=== PATIENT | female | born 1990 | race Caucasian/White ===

== ENCOUNTER 2018-04-20 19:22 | Emergency (ER) | payer SELFPAY ==
[2018-04-20] MEDS ORDERED: Sodium Chloride 0.9% 10 ML Syringe FLUSH PRN (19:47)
[2018-04-20] MEDS ORDERED: Iopamidol 612 MG/ML 100 ML Bottle IVPUSH ONE (20:25)
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
--- NOTE | 2018-04-21 10:14 | CT ---
CT neck Technique: Multiple axial sections through the neck were obtained. Intravenous contrast was utilized. Comparison: No previous study. Findings: Visualized lung apices are clear. Thyroid gland appears within normal limits. Opacified vascular structures are within normal limits. Sinus disease as described in head CT is again seen. Scattered lymph nodes are seen which are believed to be within normal limits. Pharyngeal soft tissues appear within normal limits. Bone window settings were reviewed which appear within normal limits. Prevertebral soft tissues and epiglottis are normal. Parotid salivary gland and submandibular salivary glands appear within normal limits. Impression: 1. No acute abnormality is identified on CT study of the neck. Sinus disease seen on prior head CT study again noted. Diagnostic code #1 I agree with preliminary report issued by [facility] ([facility] report finalized on 04/20/18, 10:02 PM Central Time)
--- NOTE | 2018-04-21 10:15 | CT ---
Head CT Technique: Multiple axial sections through the brain were obtained. Intravenous contrast was not utilized. Kmaar: No prior intracranial imaging is available. Findings: Ventricles along with basal cisterns and sulci over the convexities are within normal limits for the patient's age. No abnormal parenchymal densities are seen. No evidence of intracranial hemorrhage. No midline shift or mass effect is seen. Bone window settings were reviewed which show no acute calvarial abnormality. Opacified right frontal sinus is seen as well as moderate mucosal thickening within the mid and anterior right ethmoid sinus. Impression: 1. Sinus disease as noted above most likely chronic. 2. No acute intracranial abnormality is identified. Diagnostic code #2 I agree with preliminary report issued by [facility] ([facility] report finalized on 04/20/18, 9:56 PM Central Time)
== END 2018-04-20 21:26 | disposition home or self-care (01) ==
LOC: JD.ED 19:22
DX: S06.0X9A Concussion with loss of consciousness of unspecified duration, initial encounter (principal); S40.022A Contusion of left upper arm, initial encounter; S40.021A Contusion of right upper arm, initial encounter; J45.909 Unspecified asthma, uncomplicated; Z79.899 Other long term (current) drug therapy; Y04.8XXA Assault by other bodily force, initial encounter; Y07.03 Male partner, perpetrator of maltreatment and neglect
CPT/HCPCS: 70450; 70491; 99284; J7050; Q9967

== ENCOUNTER 2018-06-04 05:46 | Emergency (ER) | payer SELFPAY ==
[2018-06-04] MEDS ORDERED: Ondansetron 4 MG/2 ML SDV IVPUSH ONE (06:21)
[2018-06-04] MEDS ORDERED: Sodium Chloride 0.9% 1,000 ML IV ONE (06:21)
--- NOTE | 2018-06-04 07:27 | EDM.PDOC ---
ED HPI GENERAL MEDICAL PROBLEM - General Chief Complaint: Gastrointestinal Problem Stated Complaint: vomiting Time Seen by Provider: 06/04/18 06:01 Source of Information: Reports: Patient - History of Present Illness INITIAL COMMENTS - FREE TEXT/NARRATIVE: See dictated documentation. Lower Abdomen Pain Score (Numeric/FACES): 4 - Related Data Allergies Allergy/AdvReac Type Severity Reaction Status Date / Time No Known Allergies Allergy Verified 06/04/18 05:59 Home Meds: Home Meds Albuterol [Ventolin HFA] 2 puff INH Q4HR PRN 04/20/18 [History] Past Medical History Respiratory History: Reports: Asthma Gastrointestinal History: Reports: Other (See Below) Other Gastrointestinal History: gallbladder flare up Psychiatric History: Reports: Anxiety - Past Surgical History HEENT Surgical History: Reports: Naso-Sinus Surgery, Other (See Below) Other HEENT Surgeries/Procedures: sinus surgery; polyps removal Social & Family History - Family History Family Medical History: Noncontributory - Tobacco Use Smoking Status *Q: Former Smoker Used Tobacco, but Quit: Yes Month/Year Tobacco Last Used: 1 year ago - Caffeine Use Caffeine Use: Reports: None - Recreational Drug Use Recreational Drug Use: No ED ROS GENERAL - Review of Systems Review Of Systems: ROS reveals no pertinent complaints other than HPI. ED EXAM, GI/ABD - Physical Exam Exam: See Below Course - Vital Signs Last Recorded V/S: Last Vital Signs Temp 36.7 C 06/04/18 05:55 Pulse 66 06/04/18 05:55 Resp 18 06/04/18 05:55 BP 116/71 06/04/18 05:55 Pulse Ox 99 06/04/18 05:55 - Orders/Labs/Meds Orders: Active Orders 24 hr Category Date Time Status Pelvic Exam, Set Up [RC] ASDIRECTED Care 06/04/18 06:41 Active GC/CHLAMYDIA BY PCR [MOLEC] Stat Lab 06/04/18 07:00 Received HCG QUALITATIVE,URINE [URCHEM] Stat Lab 06/04/18 06:15 Ordered Labs: Laboratory Tests 06/04/18 06/04/18 Range/Units 06:15 06:45 Urine Color Yellow (Yellow) Urine Appearance Slt cloudy H (Clear) Urine pH 6.0 (5.0-8.0) Ur Specific [place] > or = 1.030 (1.005-1.030) Urine Protein Trace H (Negative) Urine Glucose (UA) Negative (Negative) Urine Ketones 1+ H (Negative) Urine Occult Blood Negative (Negative) Urine Nitrite Negative (Negative) Urine Bilirubin Negative (Negative) Urine Urobilinogen 0.2 (0.2-1.0) Ur Leukocyte Esterase Negative (Negative) Urine RBC 0-5 (0-5) /hpf Urine WBC 0-5 (0-5) /hpf Ur Epithelial Cells 20-30 H (0-5) /hpf Urine Bacteria Moderate H (FEW) /hpf Urine Mucus Many H (FEW) /hpf Ur Yeast w Hyphae Few H (NOT SEEN) Urine Yeast (Budding) Few H (NOT SEEN) Urine HCG, Qual Negative (NEGATIVE) Meds: Medications Discontinued Medications Generic Name Dose Route Start Last Admin Trade Name Freq PRN Reason Stop Dose Admin Sodium Chloride 1,000 mls @ 999 mls/hr 06/04/18 06:21 06/04/18 06:38 Normal Saline IV 06/04/18 07:21 999 mls/hr ONETIME ONE Administration Ondansetron HCl 4 mg 06/04/18 06:21 06/04/18 06:38 Zofran IVPUSH 06/04/18 06:22 4 mg ONETIME ONE Administration Departure - Departure Time of Disposition: 07:25 Disposition: Home, Self-Care 01 Condition: Good Clinical Impression: Vomiting - Discharge Information *PRESCRIPTION DRUG MONITORING PROGRAM REVIEWED*: Not Applicable *COPY OF PRESCRIPTION DRUG MONITORING REPORT IN PATIENT ALFREDO: Not Applicable Instructions: Nausea and Vomiting, Adult Referrals: PCP,None [Primary Care Provider] - Additional Instructions: Drink plenty of clear liquids. Zofran as needed for nausea. - My Orders Last 24 Hours: My Active Orders 06/04/18 06:15 HCG QUALITATIVE,URINE [URCHEM] Stat 06/04/18 06:41 Pelvic Exam, Set Up [RC] ASDIRECTED 06/04/18 07:00 GC/CHLAMYDIA BY PCR [MOLEC] Stat - Assessment/Plan Last 24 Hours: My Active Orders 06/04/18 06:15 HCG QUALITATIVE,URINE [URCHEM] Stat 06/04/18 06:41 Pelvic Exam, Set Up [RC] ASDIRECTED 06/04/18 07:00 GC/CHLAMYDIA BY PCR [MOLEC] Stat
[2018-06-04] MEDS ORDERED: ALPRAZolam 0.25 MG Tab PO ONE (07:41)
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
[2018-06-04 08:20] LABS: C. TRACHOMATIS BY PCR NOT DETECTED; N. GONORRHOEAE BY PCR NOT DETECTED
== END 2018-06-04 07:53 | disposition home or self-care (01) ==
LOC: JD.ED 05:46
DX: R11.2 Nausea with vomiting, unspecified (principal); Z87.891 Personal history of nicotine dependence
CPT/HCPCS: 81001; 81025; 87210; 87491; 87591; 87808; 96361; 96374; 99284; A9270; J2405; J7040; 99283

== ENCOUNTER 2019-03-09 05:07 | Inpatient (IN) | payer BC ==
--- NOTE | 2019-03-03 13:50 | PCM.LDHP ---
<Dwayne Noland - Last Filed: 03/03/19 15:40> L&D History of Present Illness - General Date of Service: 03/02/19 Admit Problem/Dx: Admission Diagnosis/Problem Admission Diagnosis/Problem 03/03/19 15:43 Primary section due to h/o herpes genitalis and possible breech presentation Source of Information: Patient History Limitations: Reports: No Limitations - History of Present Illness Introduction:: EGA:39W4D LMP: 06/05/18 GREGORY: 03/12/19 Chief complaint: Primary section secondary to h/o genital herpes Lisa is a 29 yo female, , 39W4D GA, dated by LMP 06/05/2018 and consistent with US done at 8 weeks and 21 weeks. She reports presence of movements, denies leakage of fluid, vaginal bleeding, headaches, visual changes , or abdominal pain. Routine care done at [facility] (first visit at 7 weeks GA), uterine size = to dates, BP ranges from 100-122/58-78. Problem list includes anemia, asthma, h/o genital herpes, and heart palpitations. Patient strongly desires a section due to an unconfirmed genital herpes infection in August 2018. She denies any active herpes lesions at this time and is on Valtrex as a prophylactic measure. Initial labs (06/10/18): VDRL/RPR nonreactive, urine culture positive for gardernella vaginalis (treated with flagyl, HBsAg negative, HIV negative, chlamydia and gonorrhea negative. 07/29/18: Blood type O+, antibody screen negative, HCT/HGB 36.7%/12.2, MCV 91.5 , platelets 346k 24-28 week labs (12/20/18): HCT/HGB 32.6%/10.6, MCV 94.2, platelets 340k, diabetes screen 68, VDRL/RPR nonreactive. 32-36 week labs (01/19/19): HCT/HGB 33.6%/10.8, platelets 320k. GBS negative (). - Related Data Allergies/Adverse Reactions: Allergies Allergy/AdvReac Type Severity Reaction Status Date / Time No Known Allergies Allergy Verified 06/04/18 05:59 Home Medications: Home Meds Albuterol [Ventolin HFA] 2 puff INH Q4HR PRN 04/20/18 [History] Past Medical History Respiratory History: Reports: Asthma Gastrointestinal History: Reports: Other (See Below) Other Gastrointestinal History: gallbladder flare up Psychiatric History: Reports: Anxiety - Past Surgical History HEENT Surgical History: Reports: Naso-Sinus Surgery, Other (See Below) Other HEENT Surgeries/Procedures: sinus surgery; polyps removal Social & Family History - Family History Family Medical History: Noncontributory - Caffeine Use Caffeine Use: Reports: None H&P Review of Systems - Review of Systems: Review Of Systems: See Below General: Reports: No Symptoms HEENT: Reports: No Symptoms Pulmonary: Reports: No Symptoms Cardiovascular: Reports: No Symptoms Gastrointestinal: Reports: No Symptoms Genitourinary: Reports: No Symptoms Musculoskeletal: Reports: No Symptoms Skin: Reports: No Symptoms Psychiatric: Reports: No Symptoms Neurological: Reports: No Symptoms Hematologic/Lymphatic: Reports: No Symptoms Immunologic: Reports: No Symptoms L&D Exam - Exam Exam: See Below - OB Specific Fundal Height In cm: 40 Movement: Active Heart Tones: Present Heart Tones per Min: 125 Heart Rate (FHR) Variability: Moderate (6-25 bmp) Presentation: Breech (Based on Dale maneuvers. Will confirm with bedside ultrasound on day of surgery) - Exam General: Alert, Oriented HEENT: Conjunctiva Clear, EOMI, Hearing Intact, Mucosa Moist & Odin Neck: Supple, Trachea Midline. No: Lymphadenopathy, Thyromegaly Lungs: Clear to Auscultation, Normal Respiratory Effort Cardiovascular: Regular Rate, Regular Rhythm GI/Abdominal Exam: Normal Bowel Sounds, Soft, Non-Tender Rectal Exam: Normal Exam, Normal Rectal Tone Genitourinary: Deferred Extremities: Normal Inspection, Normal Range of Motion, Non-Tender, No Pedal Edema, Normal Capillary Refill Skin: Warm, Dry, Intact Psychiatric: Alert, Normal Affect, Normal Mood - Problem List (1) 39 weeks gestation of SNOMED Code(s): 75909601 ICD Code: Z3A.39 - 39 WEEKS GESTATION OF Status: Acute (2) Anemia complicating SNOMED Code(s): 50926337 ICD Code: O99.019 - ANEMIA COMPLICATING , UNSPECIFIED TRIMESTER Status: Acute Qualifiers: Trimester: third trimester Qualified Code(s): O99.013 - Anemia complicating , third trimester (3) History of herpes genitalis SNOMED Code(s): 325403617 ICD Code: Z86.19 - PERSONAL HISTORY OF OTHER INFECTIOUS AND PARASITIC DISEASES Status: Acute Problem List Initiated/Reviewed/Updated: No Assessment/Plan Comment:: Planned primary section due to history of herpes genitalis. Patient declined vaginal delivery. Physical exam 03/02/19 is suspicious for breech presentation. Will confirm with bedside ultrasound on day of surgery 03/09/19. <Dawson Fairchild - Last Filed: 03/03/19 15:49> L&D History of Present Illness - General Admit Problem/Dx: Admission Diagnosis/Problem Admission Diagnosis/Problem - History of Present Illness Introduction:: Patient seen and examined by me and discussed with student. - Problem List (1) Breech presentation SNOMED Code(s): 9334760 ICD Code: O32.1XX0 - MATERNAL CARE FOR BREECH PRESENTATION, UNSP Status: Acute Qualifiers: Fetus number: single or unspecified fetus Qualified Code(s): O32.1XX0 - Maternal care for breech presentation, not applicable or unspecified (2) 39 weeks gestation of SNOMED Code(s): 97909583 ICD Code: Z3A.39 - 39 WEEKS GESTATION OF Status: Acute (3) Anemia complicating SNOMED Code(s): 48985737 ICD Code: O99.019 - ANEMIA COMPLICATING , UNSPECIFIED TRIMESTER Status: Acute Qualifiers: Trimester: third trimester Qualified Code(s): O99.013 - Anemia complicating , third trimester (4) History of herpes genitalis SNOMED Code(s): 420661085 ICD Code: Z86.19 - PERSONAL HISTORY OF OTHER INFECTIOUS AND PARASITIC DISEASES Status: Acute Problem List Initiated/Reviewed/Updated: No Assessment/Plan Comment:: Patient seen and examined by me and discussed with student.
[~2019-03-09 05:07] MED LIST: Citric Acid/Sodium Citrate Solution 30 ML Cup PO ONE; Metoclopramide 10 MG/2 ML SDV IVPUSH ONE; Nalbuphine 20 MG/ML 1 ML Syringe IVPUSH PRN; Sodium Chloride 0.9% 10 ML Syringe FLUSH PRN
[2019-03-09] MEDS: Lactated Ringers 1,000 ML IV SCH ×2 (06:15→06:57)
[2019-03-09] MEDS ORDERED: Bupivacaine 0.5% 30 ML SDV ONE (06:40)
[2019-03-09] MEDS ORDERED: Metoclopramide 10 MG/2 ML SDV ONE (06:41)
[2019-03-09] MEDS ORDERED: Citric Acid/Sodium Citrate Solution 30 ML Cup ONE (06:41)
[2019-03-09] MEDS ORDERED: Morphine PF 10 MG/10 ML SDV ONE (07:11)
[2019-03-09] MEDS ORDERED: ceFAZolin 1 GM Vial ONE (07:11)
--- NOTE | 2019-03-09 07:12 | PCM.SN ---
- Free Text/Narrative Note: Bedside Ultrasound performed and confirmed cephalic presentation.
[2019-03-09] MEDS ORDERED: Oxytocin 10 Units/1 ML SDV ONE (07:39)
[2019-03-09] MEDS ORDERED: ePHEDrine/Normal Saline 25 MG/5 ML Syringe ONE ×2 (07:46→08:05)
[2019-03-09] MEDS ORDERED: Ketorolac 30 MG/ML SDV ONE (08:04)
[2019-03-09] MEDS ORDERED: Lactated Ringers 1,000 ML ONE (08:18)
[2019-03-09] MEDS ORDERED: diphenhydrAMINE 50 MG/ML SDV IVPUSH PRN ×2 (08:37→08:56)
--- NOTE | 2019-03-09 08:38 | PCM.OPNOTE ---
- General Post-Op/Procedure Note Date of Surgery/Procedure: 03/09/19 Operative Procedure(s): low segment transverse Pre Op Diagnosis: 39 weeks gestation, anemia in , history of recurrent herpes genitalis Post-Op Diagnosis: Same Anesthesia Technique: Spinal Primary Surgeon: Dawson Fairchild Secondary Surgeon: Mick Arthur Anesthesia Provider: Adam Tanner Stamping Die Maker: Dwayne Noland (PAS) Stamping Die Maker: Sita Navarro (FIELD PROFESSIONAL) Reason Stamping Die Maker Was Necessary: visualization of the operative site with retraction, decrease comorbidity, mortality Role of Stamping Die Maker: visualization of the operative site with retraction, decrease comorbidity, mortality Fluid Replacement, Intraop: 2,700 Output, Urine Amount: 120 EBL in mLs: 950 Drain/Tube Comments:: Bowling Complications: None Condition: Good Free Text/Narrative:: Tissue was transported to the operating room and placed under spinal anesthesia in the supine position with wedge under the right hip and right flank. SCDs in place and functioning prior surgery. 2 g of Ancef given prior surgery. Prepared and draped in a sterile fashion after Bowling catheter placed. Timeout performed confirming name date of and procedure as section. Adequate level of anesthesia was confirmed 20 mL of 0.5% Marcaine injected in the area of the planned incision. brought to the operating room. Transverse lower abdominal incision made (Pfannenstiel) and care was sharp section to into the anterior fascia peritoneal cavity was entered without difficulty bladder flap created and pushed caudad. Low segment transverse performed with clear amniotic fluid upon entry into the amnionic cavity. Female liveborn delivered at 0755 hrs. Apgars 8/8 weight 3230 g/7 lbs. 2 oz. Cord blood was collected from three-vessel cord and placenta was removed manually. Additional remnants of membranes removed from the endometrial cavity. Endometrial cavity inspected, cervical patency assured and uterine incision was closed in 2 layers. Sponge needle pack count correct upon closure of the uterus. The uterine incision closed with running locking suture of 0 Monocryl for the first layer second layer with horizontal modified Lembert suture and additional figure -of-eight sutures for hemostasis. Both tubes and ovaries were normal. Clots cleaned from the cul-de-sac and gutters bilaterally reinspection of the operative site showed no bleeding. Sponge needle pack count correct 2 and the abdominal cavity was closed with #1 PDS for the anterior fascia. Skin was closed subcuticular 3-0 Monocryl Angelo needle and Dermabond Preneo applied. Clots were cleaned from the vagina at the end procedure. Patient was transported postanesthesia care unit in satisfactory condition. No blood transfusions required.
--- NOTE | 2019-03-09 08:38 | PCM.POSTAN ---
POST ANESTHESIA ASSESSMENT - MENTAL STATUS Mental Status: Alert, Oriented - VITAL SIGNS Pulse Rate: 79 SaO2: 95 Resp Rate: 9 Blood Pressure: 108/59 Temperature: 36.6 C - RESPIRATORY Respiratory Status: Respiratory Rate WNL, Airway Patent, O2 Saturation Stable - CARDIOVASCULAR CV Status: Pulse Rate WNL, Blood Pressure Stable - GASTROINTESTINAL GI Status: No Symptoms - PAIN Pain Score: 0 - POST OP HYDRATION Hydration Status: Adequate & Stable - OBSERVATIONS Free Text/Narrative:: no anesthesia complications noted
--- NOTE | 2019-03-09 08:39 | PCM.PREANE ---
Preanesthetic Assessment - Anesthesia/Transfusion/Family Hx Anesthesia History: Prior Anesthesia Without Reaction Family History of Anesthesia Reaction: No Transfusion History: No Prior Transfusion(s) - Review of Systems General: No Symptoms Pulmonary: No Symptoms Cardiovascular: Dyspnea on Exertion Gastrointestinal: No Symptoms Neurological: No Symptoms Other: Reports: None - Physical Assessment NPO Status Date: 03/08/19 NPO Status Time: 00:00 Pulse: 79 O2 Sat by Pulse Oximetry: 95 Respiratory Rate: 9 Blood Pressure: 108/59 Temperature: 36.6 C Vital Signs: Last Vital Signs Temp 36.6 C 03/09/19 08:38 Pulse 79 03/09/19 08:38 Resp 9 L 03/09/19 08:38 BP 108/59 L 03/09/19 08:38 Pulse Ox 95 03/09/19 08:38 Height: 1.65 m Weight: 108.908 kg ASA Class: 2 Mental Status: Alert & Oriented x3 Airway Class: Mallampati = 1 Dentition: Reports: Normal Dentition Thyro-Mental Finger Breadths: 3 Mouth Opening Finger Breadths: 3 ROM/Head Extension: Full Lungs: Clear to Auscultation, Normal Respiratory Effort Cardiovascular: Regular Rate, Regular Rhythm - Lab Values: Laboratory Last Values WBC 8.29 K/mm3 (3.98-10.04) 03/09/19 05:35 RBC 3.70 M/mm3 (3.98-5.22) L 03/09/19 05:35 Hgb 11.4 gm/L (11.2-15.7) 03/09/19 05:35 Hct 34.7 % (34.1-44.9) 03/09/19 05:35 MCV 93.8 fl (79.4-94.8) 03/09/19 05:35 MCH 30.8 pg (25.6-32.2) 03/09/19 05:35 MCHC 32.9 g/dl (32.2-35.5) 03/09/19 05:35 RDW Std Deviation 46.1 fL (36.4-46.3) 03/09/19 05:35 Plt Count 278 K/mm3 (182-369) 03/09/19 05:35 MPV 9.6 fl (9.4-12.3) 03/09/19 05:35 Blood Type O POSITIVE 03/09/19 05:35 Gel Antibody Screen Negative 03/09/19 05:35 - Allergies Allergies/Adverse Reactions: Allergies Allergy/AdvReac Type Severity Reaction Status Date / Time No Known Allergies Allergy Verified 03/09/19 06:12 - Anesthesia Plan Pre-Op Medication Ordered: None - Acknowledgements Anesthesia Type Planned: Spinal Pt an Appropriate Candidate for the Planned Anesthesia: Yes Alternatives and Risks of Anesthesia Discussed w Pt/Guardian: Yes Pt/Guardian Understands and Agrees with Anesthesia Plan: Yes PreAnesthesia Questionnaire - Past Health History Medical/Surgical History: Denies Medical/Surgical History Respiratory History: Reports: Asthma Gastrointestinal History: Reports: GERD, Other (See Below) Other Gastrointestinal History: gallbladder flare up [employer] History: Reports: Psychiatric History: Reports: Anxiety - Infectious Disease History Infectious Disease History: Reports: Herpes - Past Surgical History HEENT Surgical History: Reports: Naso-Sinus Surgery, Other (See Below) Other HEENT Surgeries/Procedures: sinus surgery; polyps removal - SUBSTANCE USE Smoking Status *Q: Never Smoker Second Hand Smoke Exposure: No Recreational Drug Use History: No - HOME MEDS Home Medications: Home Meds Albuterol [Ventolin HFA] 2 puff INH Q4HR PRN 04/20/18 [History] Ferrous Sulfate [Iron] 325 mg PO DAILY 03/09/19 [History] Oni578/FA/Omega3/Dha/Fish Oil [ Gummies] 1 each PO DAILY 03/09/19 [ History] valACYclovir [Valtrex] 1,000 mg PO DAILY 03/09/19 [History] - CURRENT (IN HOUSE) MEDS Current Meds: Current Medications Diphenhydramine HCl (Benadryl) 25 mg IVPUSH Q6H PRN PRN Reason: Itching Lactated Ringer's (Ringers, Lactated) 1,000 mls @ 125 mls/hr IV ASDIRECTED ALESHIA Last Admin: 03/09/19 06:57 Dose: 999 mls/hr Nalbuphine HCl (Nubain) 10 mg IVPUSH Q2H PRN PRN Reason: pain Sodium Chloride (Saline Flush) 10 ml FLUSH ASDIRECTED PRN PRN Reason: Keep Vein Open Discontinued Medications Bupivacaine HCl (Marcaine 0.5%) Confirm Administered Dose 30 ml .ROUTE .STK-MED ONE Stop: 03/09/19 06:41 Cefazolin Sodium (Ancef) Confirm Administered Dose 2 gm .ROUTE .STK-MED ONE Stop: 03/09/19 07:12 Citric Acid/Sodium Citrate (Bicitra Solution) 30 ml PO ONETIME ONE Stop: 03/09/19 02:53 Last Admin: 03/09/19 06:56 Dose: 30 ml Citric Acid/Sodium Citrate (Bicitra Solution) Confirm Administered Dose 30 ml .ROUTE .ST-MED ONE Stop: 03/09/19 06:42 Last Admin: 03/09/19 06:56 Dose: Not Given Ephedrine Sulfate (Ephedrine In Ns) Confirm Administered Dose 25 mg .ROUTE .STK- MED ONE Stop: 03/09/19 07:47 Ephedrine Sulfate (Ephedrine In Ns) Confirm Administered Dose 25 mg .ROUTE .ST- MED ONE Stop: 03/09/19 08:06 Lactated Ringer's (Ringers, Lactated) Confirm Administered Dose 1,000 mls @ as directed .ROUTE .ST-MED ONE Stop: 03/09/19 08:19 Ketorolac Tromethamine (Toradol) Confirm Administered Dose 30 mg .ROUTE .STK- MED ONE Stop: 03/09/19 08:05 Metoclopramide HCl (Reglan) 10 mg IVPUSH ONETIME ONE Stop: 03/09/19 02:53 Last Admin: 03/09/19 06:55 Dose: 10 mg Metoclopramide HCl (Reglan) Confirm Administered Dose 10 mg .ROUTE .ST-MED ONE Stop: 03/09/19 06:42 Last Admin: 03/09/19 06:56 Dose: Not Given Morphine Sulfate (Duramorph Pf) Confirm Administered Dose 10 mg .ROUTE .STK-MED ONE Stop: 03/09/19 07:12 Oxytocin (Pitocin) Confirm Administered Dose 20 unit .ROUTE .STK-MED ONE Stop: 03/09/19 07:40
[2019-03-09] MEDS ORDERED: ePHEDrine 50 MG/ML SDV IVPUSH PRN (08:56)
[2019-03-09] MEDS ORDERED: Ondansetron 4 MG/2 ML SDV IV PRN (08:56)
[2019-03-09] MEDS ORDERED: Acetaminophen 325 MG Tab PO PRN (08:56)
[2019-03-09] MEDS ORDERED: Docusate Sodium 100 MG Cap PO PRN (08:56)
[2019-03-09] MEDS ORDERED: Lanolin 100% Cream 7 GM Tube TOP PRN (08:56)
[2019-03-09] MEDS ORDERED: Naloxone 0.4 MG/ML SDV IVPUSH PRN (08:56)
[2019-03-09] MEDS ORDERED: Sodium Chloride 0.9% 10 ML Syringe FLUSH PRN (08:56)
[2019-03-09] MEDS ORDERED: Dextrose 5%-Lactated Ringers 1,000 ML IV SCH (09:00)
[2019-03-09] MEDS: Ibuprofen 600 MG Tab PO PRN (18:01)
[2019-03-09] MEDS: Simethicone 80 MG Tab.Chew PO SCH ×3 (18:01→22:05)
[2019-03-09] MEDS: Acetaminophen/oxyCODONE 325-5 MG Tab PO PRN (22:13)
[2019-03-10] MEDS: Ibuprofen 600 MG Tab PO PRN ×3 (05:02→18:19)
--- NOTE | 2019-03-10 06:57 | PCM.SURGPN ---
- General Info Date of Service: 03/10/19 POD#: 1 Post-Op Diagnosis: S/P Functional Status: Reports: Pain Controlled - Review of Systems General: Reports: No Symptoms HEENT: Reports: No Symptoms Pulmonary: Reports: No Symptoms Cardiovascular: Reports: No Symptoms Gastrointestinal: Reports: No Symptoms Genitourinary: Reports: No Symptoms Musculoskeletal: Reports: No Symptoms Skin: Reports: No Symptoms Neurological: Reports: No Symptoms Psychiatric: Reports: No Symptoms - Patient Data Vitals - Most Recent: Last Vital Signs Temp 98.6 F 03/10/19 00:12 Pulse 92 03/10/19 00:12 Resp 16 03/10/19 00:12 BP 112/60 03/10/19 00:12 Pulse Ox 98 03/10/19 00:12 Weight - Most Recent: 240 lb 1.6 oz I&O - Last 24 Hours: Intake & Output 03/09/19 03/09/19 03/10/19 14:59 22:59 06:59 Intake Total 2950 800 Output Total 240 1150 Balance 2710 -350 Lab Results Last 24 Hrs: Laboratory Results - last 24 hr 03/09/19 03/09/19 03/10/19 Range/Units 05:35 05:35 05:30 WBC 9.83 (3.98-10.04) K/mm3 RBC 2.81 L (3.98-5.22) M/mm3 Hgb 8.6 L D (11.2-15.7) gm/L Hct 27.2 L (34.1-44.9) % MCV 96.8 H D (79.4-94.8) fl MCH 30.6 (25.6-32.2) pg MCHC 31.6 L (32.2-35.5) g/dl RDW Std Deviation 46.9 H (36.4-46.3) fL Plt Count 232 (182-369) K/mm3 MPV 9.6 (9.4-12.3) fl Neut % (Auto) 74.3 H (34.0-71.1) % Lymph % (Auto) 13.5 L (19.3-51.7) % [place] % (Auto) 9.8 (4.7-12.5) % Eos % (Auto) 1.9 (0.7-5.8) Baso % (Auto) 0.2 (0.1-1.2) % Neut # (Auto) 7.30 H (1.56-6.13) K/mm3 Lymph # (Auto) 1.33 (1.18-3.74) K/mm3 [place] # (Auto) 0.96 H (0.24-0.36) K/mm3 Eos # (Auto) 0.19 (0.04-0.36) K/mm3 Baso # (Auto) 0.02 (0.01-0.08) K/mm3 RPR Non-reactive (NONREACTIVE) Blood Type O POSITIVE Gel Antibody Screen Negative Med Orders - Current: Current Medications Acetaminophen (Tylenol) 650 mg PO Q4H PRN PRN Reason: mild pain or fever Diphenhydramine HCl (Benadryl) 25 mg IVPUSH Q6H PRN PRN Reason: Itching or Nausea Docusate Sodium (Colace) 100 mg PO Q12H PRN PRN Reason: Constipation Last Admin: 03/09/19 22:05 Dose: 100 mg Emollient Ointment (Lansinoh Hpa) 0 gm TOP ASDIRECTED PRN PRN Reason: Sore Nipples Ephedrine Sulfate (Ephedrine Sulfate) 5 mg IVPUSH SEECOMMENT PRN PRN Reason: Other Ibuprofen (Motrin) 600 mg PO Q6H PRN PRN Reason: mild pain or fever Last Admin: 03/10/19 05:02 Dose: 600 mg Naloxone HCl (Narcan) 0.1 mg IVPUSH SEECOMMENT PRN PRN Reason: Respiratory Depression Ondansetron HCl (Zofran) 4 mg IV Q8H PRN PRN Reason: Nausea/Vomiting Oxycodone/Acetaminophen (Percocet 325-5 Mg) 2 tab PO Q4H PRN PRN Reason: Pain (moderate 4-6) Last Admin: 03/09/19 22:13 Dose: 2 tab Simethicone (Simethicone) 80 mg PO PCBED ALESHIA Last Admin: 03/09/19 22:05 Dose: 80 mg Sodium Chloride (Saline Flush) 10 ml FLUSH ASDIRECTED PRN PRN Reason: Keep Vein Open Discontinued Medications Bupivacaine HCl (Marcaine 0.5%) Confirm Administered Dose 30 ml .ROUTE .STK-MED ONE Stop: 03/09/19 06:41 Last Admin: 03/09/19 07:51 Dose: 20 ml Cefazolin Sodium (Ancef) Confirm Administered Dose 2 gm .ROUTE .[facility] ONE Stop: 03/09/19 07:12 Citric Acid/Sodium Citrate (Bicitra Solution) 30 ml PO ONETIME ONE Stop: 03/09/19 02:53 Last Admin: 03/09/19 06:56 Dose: 30 ml Citric Acid/Sodium Citrate (Bicitra Solution) Confirm Administered Dose 30 ml .ROUTE .[facility] ONE Stop: 03/09/19 06:42 Last Admin: 03/09/19 06:56 Dose: Not Given Diphenhydramine HCl (Benadryl) 25 mg IVPUSH Q6H PRN PRN Reason: Itching Ephedrine Sulfate (Ephedrine In Ns) Confirm Administered Dose 25 mg .ROUTE .[facility] ONE Stop: 03/09/19 07:47 Ephedrine Sulfate (Ephedrine In Ns) Confirm Administered Dose 25 mg .ROUTE .[facility] ONE Stop: 03/09/19 08:06 Lactated Ringer's (Ringers, Lactated) 1,000 mls @ 125 mls/hr IV ASDIRECTED [facility] Last Admin: 03/09/19 06:57 Dose: 999 mls/hr Lactated Ringer's (Ringers, Lactated) Confirm Administered Dose 1,000 mls @ as directed .ROUTE .[facility] ONE Stop: 03/09/19 08:19 Dextrose/Lactated Ringer's (Dextrose 5%-Lactated Ringers) 1,000 mls @ 125 mls/ hr IV ASDIRECTED [facility] Stop: 03/09/19 16:59 Ketorolac Tromethamine (Toradol) Confirm Administered Dose 30 mg .ROUTE .[facility] ONE Stop: 03/09/19 08:05 Metoclopramide HCl (Reglan) 10 mg IVPUSH ONETIME ONE Stop: 03/09/19 02:53 Last Admin: 03/09/19 06:55 Dose: 10 mg Metoclopramide HCl (Reglan) Confirm Administered Dose 10 mg .ROUTE .[facility] ONE Stop: 03/09/19 06:42 Last Admin: 03/09/19 06:56 Dose: Not Given Morphine Sulfate (Duramorph Pf) Confirm Administered Dose 10 mg .ROUTE .STK-MED ONE Stop: 03/09/19 07:12 Nalbuphine HCl (Nubain) 10 mg IVPUSH Q2H PRN PRN Reason: pain Oxytocin (Pitocin) Confirm Administered Dose 20 unit .ROUTE .STK-MED ONE Stop: 03/09/19 07:40 Sodium Chloride (Saline Flush) 10 ml FLUSH ASDIRECTED PRN PRN Reason: Keep Vein Open - Exam Wound/Incisions: Healing Well General: Alert, Oriented HEENT: Pupils Equal Neck: Supple Lungs: Clear to Auscultation, Normal Respiratory Effort Cardiovascular: Regular Rate, Regular Rhythm GI/Abdominal Exam: Normal Bowel Sounds, Soft, Non-Tender Extremities: Normal Inspection, Normal Range of Motion, Non-Tender, No Pedal Edema, Normal Capillary Refill Skin: Warm, Dry, Intact Neurological: No New Focal Deficit Psy/Mental Status: Alert, Normal Affect, Normal Mood - Problem List & Annotations (1) Breech presentation SNOMED Code(s): 1675980 Code(s): O32.1XX0 - MATERNAL CARE FOR BREECH PRESENTATION, UNSP Status: Acute Current Visit: No Qualifiers: Fetus number: single or unspecified fetus Qualified Code(s): O32.1XX0 - Maternal care for breech presentation, not applicable or unspecified (2) 39 weeks gestation of SNOMED Code(s): 12400872 Code(s): Z3A.39 - 39 WEEKS GESTATION OF Status: Acute Current Visit: No (3) Anemia complicating SNOMED Code(s): 93198578 Code(s): O99.019 - ANEMIA COMPLICATING , UNSPECIFIED TRIMESTER Status: Acute Current Visit: No Qualifiers: Trimester: third trimester Qualified Code(s): O99.013 - Anemia complicating , third trimester (4) History of herpes genitalis SNOMED Code(s): 409377307 Code(s): Z86.19 - PERSONAL HISTORY OF OTHER INFECTIOUS AND PARASITIC DISEASES Status: Acute Current Visit: No (5) Anemia associated with acute blood loss SNOMED Code(s): 626798030 Code(s): D62 - ACUTE POSTHEMORRHAGIC ANEMIA Status: Acute Current Visit: Yes - Problem List Review Problem List Initiated/Reviewed/Updated: No - My Orders Last 24 Hours: Active Orders 24 hr Category Date Time Status Activity as Tolerated [RC] .Routine Care 03/09/19 08:56 Active Ambulate [RC] PER UNIT ROUTINE Care 03/09/19 08:56 Active Antiembolic Devices [RC] PER UNIT ROUTINE Care 03/09/19 08:56 Active Communication Order [RC] ASDIRECTED Care 03/09/19 08:37 Inactive Communication Order [RC] PER UNIT ROUTINE Care 03/09/19 08:56 Active Communication Order [RC] PER UNIT ROUTINE Care 03/09/19 08:56 Active Communication Order [RC] PER UNIT ROUTINE Care 03/09/19 08:56 Active Cooling Warming Measures [RC] ASDIRECTED Care 03/09/19 08:37 Inactive Intake and Output [RC] Q8HR Care 03/09/19 08:56 Active May Shower [RC] PER UNIT ROUTINE Care 03/09/19 08:56 Active Notify Provider Intake and Out [RC] ASDIRECTED Care 03/09/19 08:56 Active Notify Provider [RC] ASDIRECTED Care 03/09/19 08:37 Inactive Oxygen Therapy [RC] ASDIRECTED Care 03/09/19 08:37 Inactive Pulse Oximetry [RC] ASDIRECTED Care 03/09/19 08:37 Inactive RT Incentive Spirometry [RC] Q1HWA Care 03/09/19 08:56 Active Urinary Catheter Removal [RC] Per Unit Routine Care 03/10/19 08:50 Active Vital Signs [RC] Q15M Care 03/09/19 08:37 Inactive Vital Signs [RC] Q1HR Care 03/09/19 08:56 Active Regular Diet [DIET] Diet 03/09/19 Lunch Active Acetaminophen [Tylenol] Med 03/09/19 08:56 Active 650 mg PO Q4H PRN Acetaminophen/oxyCODONE [Percocet 325-5 MG] Med 03/09/19 08:56 Active 2 tab PO Q4H PRN Docusate Sodium [Colace] Med 03/09/19 08:56 Active 100 mg PO Q12H PRN Ibuprofen [Motrin] Med 03/09/19 14:00 Active 600 mg PO Q6H PRN Lanolin [Lansinoh HPA] Med 03/09/19 08:56 Active See Dose Instructions TOP ASDIRECTED PRN Naloxone [Narcan] Med 03/09/19 08:56 Active 0.1 mg IVPUSH SEECOMMENT PRN Ondansetron [Zofran] Med 03/09/19 08:56 Active 4 mg IV Q8H PRN Simethicone Med 03/09/19 09:00 Active 80 mg PO PCBED Sodium Chloride 0.9% [Saline Flush] Med 03/09/19 08:56 Active 10 ml FLUSH ASDIRECTED PRN diphenhydrAMINE [Benadryl] Med 03/09/19 08:56 Active 25 mg IVPUSH Q6H PRN ePHEDrine [ePHEDrine sulfate] Med 03/09/19 08:56 Active 5 mg IVPUSH SEECOMMENT PRN Abdominal Binder [OM.PC] Per Unit Routine Ot 03/09/19 08:56 Ordered Assess Lochia [WOMSER] Per Unit Routine Ot 03/09/19 08:56 Ordered Assess Uterine Involution [WOMSER] Per Unit Routine Ot 03/09/19 08:56 Ordered Breast Pump [WOMSER] Per Unit Routine Ot 03/09/19 08:56 Ordered Convert IV to Saline Lock [OM.PC] Routine Ot 03/09/19 08:56 Ordered Medication Administration Instruction [OM.PC] Routine Ot 03/09/19 08:56 Ordered Peripheral IV Discontinue [OM.PC] Routine Ot 03/09/19 08:56 Ordered Saline Lock Insert [OM.PC] Routine Ot 03/09/19 08:56 Ordered Sequential Compression Device [OM.PC] Per Unit Routine Ot 03/09/19 08:56 Ordered Medication Orders Acetaminophen (Tylenol) 650 mg PO Q4H PRN PRN Reason: mild pain or fever Diphenhydramine HCl (Benadryl) 25 mg IVPUSH Q6H PRN PRN Reason: Itching or Nausea Docusate Sodium (Colace) 100 mg PO Q12H PRN PRN Reason: Constipation Last Admin: 03/09/19 22:05 Dose: 100 mg Emollient Ointment (Lansinoh Hpa) 0 gm TOP ASDIRECTED PRN PRN Reason: Sore Nipples Ephedrine Sulfate (Ephedrine Sulfate) 5 mg IVPUSH SEECOMMENT PRN PRN Reason: Other Ibuprofen (Motrin) 600 mg PO Q6H PRN PRN Reason: mild pain or fever Last Admin: 03/10/19 05:02 Dose: 600 mg Admin: 03/09/19 18:01 Dose: 600 mg Naloxone HCl (Narcan) 0.1 mg IVPUSH SEECOMMENT PRN PRN Reason: Respiratory Depression Ondansetron HCl (Zofran) 4 mg IV Q8H PRN PRN Reason: Nausea/Vomiting Oxycodone/Acetaminophen (Percocet 325-5 Mg) 2 tab PO Q4H PRN PRN Reason: Pain (moderate 4-6) Last Admin: 03/09/19 22:13 Dose: 2 tab Simethicone (Simethicone) 80 mg PO PCBED ALESHIA Last Admin: 03/09/19 22:05 Dose: 80 mg Admin: 03/09/19 18:01 Dose: 80 mg Admin: 03/09/19 18:01 Dose: Not Given Admin: 03/09/19 18:01 Dose: Not Given Sodium Chloride (Saline Flush) 10 ml FLUSH ASDIRECTED PRN PRN Reason: Keep Vein Open - Plan Plan (Free Text/Narrative):: Patient is asymptomatic concerning her anemia. Ambulate today.
--- NOTE | 2019-03-10 07:25 | PCM48HPAN ---
Post Anesthesia Note - EVALUATION WITHIN 48HRS OF ANESTHETIC Vital Signs in Normal Range: Yes Patient Participated in Evaluation: Yes Respiratory Function Stable: Yes Airway Patent: Yes Cardiovascular Function Stable: Yes Hydration Status Stable: Yes Pain Control Satisfactory: Yes Nausea and Vomiting Control Satisfactory: Yes Mental Status Recovered: Yes Pulse Rate: 92 Resp Rate: 16 Temperature: 37.0 C Blood Pressure: 112/60 - COMMENTS/OBSERVATIONS Free Text/Narrative:: no anesthesia complications noted
[2019-03-10] MEDS: valACYclovir 500 MG Tab PO SCH ×3 (08:23→22:45)
[2019-03-10] MEDS: Simethicone 80 MG Tab.Chew PO SCH ×4 (08:23→21:01)
[2019-03-10] MEDS: Acetaminophen/oxyCODONE 325-5 MG Tab PO PRN ×2 (11:38→22:25)
[2019-03-11] MEDS: Acetaminophen/oxyCODONE 325-5 MG Tab PO PRN (05:42)
--- NOTE | 2019-03-11 08:20 | PCM.DCSUM1 ---
Discharge Summary - Hospital Course Free Text/Narrative:: [facility] Post-Op/Procedure Note Patient Name: KARAN ALMONTE Date of : 86 Patient Status: Inpatient Attending Provider: Dawson Fairchild Date: 03/09/19 08:33 Initialization Date: 03/09/19 08:33 - General Post-Op/Procedure Note Date of Surgery/Procedure: 03/09/19 Operative Procedure(s): low segment transverse Pre Op Diagnosis: 39 weeks gestation, anemia in , history of recurrent herpes genitalis Post-Op Diagnosis: Same Anesthesia Technique: Spinal Primary Surgeon: Dawson Fairchild Secondary Surgeon: Mick Arthur Anesthesia Provider: Adam Tanner Practice Coordinator: Dwayne Noland (PAS) Practice Coordinator: Sita Navarro (STRONG NITRIC OPERATOR) Reason Practice Coordinator Was Necessary: visualization of the operative site with retraction, decrease comorbidity, mortality Role of Practice Coordinator: visualization of the operative site with retraction, decrease comorbidity, mortality Fluid Replacement, Intraop: 2,700 Output, Urine Amount: 120 EBL in mLs: 950 Drain/Tube Comments:: Bowling Complications: None Condition: Good Free Text/Narrative:: Tissue was transported to the operating room and placed under spinal anesthesia in the supine position with wedge under the right hip and right flank. SCDs in place and functioning prior surgery. 2 g of Ancef given prior surgery. Prepared and draped in a sterile fashion after Bowling catheter placed. Timeout performed confirming name date of and procedure as section. Adequate level of anesthesia was confirmed 20 mL of 0.5% Marcaine injected in the area of the planned incision. brought to the operating room. Transverse lower abdominal incision made (Pfannenstiel) and care was sharp section to into the anterior fascia peritoneal cavity was entered without difficulty bladder flap created and pushed caudad. Low segment transverse performed with clear amniotic fluid upon entry into the amnionic cavity. Female liveborn delivered at 0755 hrs. Apgars 8/8 weight 3230 g/7 lbs. 2 oz. Cord blood was collected from three-vessel cord and placenta was removed manually. Additional remnants of membranes removed from the endometrial cavity. Endometrial cavity inspected, cervical patency assured and uterine incision was closed in 2 layers. Sponge needle pack count correct upon closure of the uterus. The uterine incision closed with running locking suture of 0 Monocryl for the first layer second layer with horizontal modified Lembert suture and additional figure -of-eight sutures for hemostasis. Both tubes and ovaries were normal. Clots cleaned from the cul-de-sac and gutters bilaterally reinspection of the operative site showed no bleeding. Sponge needle pack count correct 2 and the abdominal cavity was closed with #1 PDS for the anterior fascia. Skin was closed subcuticular 3-0 Monocryl Angelo needle and Dermabond Preneo applied. Clots were cleaned from the vagina at the end procedure. Patient was transported postanesthesia care unit in satisfactory condition. No blood transfusions required. HPI Initial Comments: [facility] Post-Op/Procedure Note Patient Name: KARAN ALMONTE Date of : 86 Patient Status: Inpatient Attending Provider: Dawson Fairchild Date: 03/09/19 08:33 Initialization Date: 03/09/19 08:33 - General Post-Op/Procedure Note Date of Surgery/Procedure: 03/09/19 Operative Procedure(s): low segment transverse Pre Op Diagnosis: 39 weeks gestation, anemia in , history of recurrent herpes genitalis Post-Op Diagnosis: Same Anesthesia Technique: Spinal Primary Surgeon: Dawson Fairchild Secondary Surgeon: Mick Arthur Anesthesia Provider: Adam Tanner Practice Coordinator: Dwayne Noland (PAS) Practice Coordinator: Sita Navarro (STRONG NITRIC OPERATOR) Reason Practice Coordinator Was Necessary: visualization of the operative site with retraction, decrease comorbidity, mortality Role of Practice Coordinator: visualization of the operative site with retraction, decrease comorbidity, mortality Fluid Replacement, Intraop: 2,700 Output, Urine Amount: 120 EBL in mLs: 950 Drain/Tube Comments:: Bowling Complications: None Condition: Good Free Text/Narrative:: Tissue was transported to the operating room and placed under spinal anesthesia in the supine position with wedge under the right hip and right flank. SCDs in place and functioning prior surgery. 2 g of Ancef given prior surgery. Prepared and draped in a sterile fashion after Bowling catheter placed. Timeout performed confirming name date of and procedure as section. Adequate level of anesthesia was confirmed 20 mL of 0.5% Marcaine injected in the area of the planned incision. brought to the operating room. Transverse lower abdominal incision made (Pfannenstiel) and care was sharp section to into the anterior fascia peritoneal cavity was entered without difficulty bladder flap created and pushed caudad. Low segment transverse performed with clear amniotic fluid upon entry into the amnionic cavity. Female liveborn delivered at 0755 hrs. Apgars 8/8 weight 3230 g/7 lbs. 2 oz. Cord blood was collected from three-vessel cord and placenta was removed manually. Additional remnants of membranes removed from the endometrial cavity. Endometrial cavity inspected, cervical patency assured and uterine incision was closed in 2 layers. Sponge needle pack count correct upon closure of the uterus. The uterine incision closed with running locking suture of 0 Monocryl for the first layer second layer with horizontal modified Lembert suture and additional figure -of-eight sutures for hemostasis. Both tubes and ovaries were normal. Clots cleaned from the cul-de-sac and gutters bilaterally reinspection of the operative site showed no bleeding. Sponge needle pack count correct 2 and the abdominal cavity was closed with #1 PDS for the anterior fascia. Skin was closed subcuticular 3-0 Monocryl Angelo needle and Dermabond Preneo applied. Clots were cleaned from the vagina at the end procedure. Patient was transported postanesthesia care unit in satisfactory condition. No blood transfusions required. Brief History: [facility] . Post-Op/Procedure Note. [id number] Date of : 86Patient Status: Inpatient. Attending Provider: Dawson Fairchildccount Number: [id number]. Date: 03/09/19 08:33Initialization Date: 02/20 08:33. - General Post-Op/Procedure Note. Date of Surgery/Procedure: 02/20. Operative Procedure(s): low segment transverse . Pre Op Diagnosis: 39 weeks gestation, anemia in , history of recurrent herpes genitalis. Post-Op Diagnosis: Same. Anesthesia Technique: Spinal. Primary Surgeon: Dawson Fairchild. Secondary Surgeon: Mick Arthur. Anesthesia Provider: Adam Tanner. Practice Coordinator: Dwayne Noland (PAS). Practice Coordinator: Sita Navarro (STRONG NITRIC OPERATOR). Reason Practice Coordinator Was Necessary: visualization of the operative site with retraction, decrease comorbidity, mortality. Role of Practice Coordinator: visualization of the operative site with retraction, decrease comorbidity, mortality. Fluid Replacement, Intraop: 2,700. Output, Urine Amount: 120. EBL in mLs: 950. Drain/Tube Comments:: Bowling. Complications: None. Condition: Good. Free Text/Narrative:: Tissue was transported to the operating room and placed under spinal anesthesia in the supine position with wedge under the right hip and right flank. SCDs in place and functioning prior surgery. 2 g of Ancef given prior surgery. Prepared and draped in a sterile fashion after Bowling catheter placed. Timeout performed confirming name date of and procedure as section. Adequate level of anesthesia was confirmed 20 mL of 0.5% Marcaine injected in the area of the planned incision. brought to the operating room. Transverse lower abdominal incision made (Pfannenstiel) and care was sharp section to into the anterior fascia peritoneal cavity was entered without difficulty bladder flap created and pushed caudad. Low segment transverse performed with clear amniotic fluid upon entry into the amnionic cavity. Female liveborn delivered at 0755 hrs. Apgars 8/8 weight 3230 g /7 lbs. 2 oz. Cord blood was collected from three-vessel cord and placenta was removed manually. Additional remnants of membranes removed from the endometrial cavity. Endometrial cavity inspected, cervical patency assured and uterine incision was closed in 2 layers. Sponge needle pack count correct upon closure of the uterus. The uterine incision closed with running locking suture of 0 Monocryl for the first layer second layer with horizontal modified Lembert suture and additional [id number] sutures for hemostasis. Both tubes and ovaries were normal. Clots cleaned from the cul-de-sac and gutters bilaterally reinspection of the operative site showed no bleeding. Sponge needle pack count correct 2 and the abdominal cavity was closed with #1 PDS for the anterior fascia. Skin was closed subcuticular 3-0 Monocryl Angelo needle and Dermabond Preneo applied. Clots were cleaned from the vagina at the end procedure. Patient was transported postanesthesia care unit in satisfactory condition. No blood transfusions required. Diagnosis: Stroke: No - Discharge Data Discharge Date: 03/11/19 Discharge Disposition: Home, Self-Care 01 Condition: Good - Discharge Diagnosis/Problem(s) (1) Breech presentation SNOMED Code(s): 6822189 ICD Code: O32.1XX0 - MATERNAL CARE FOR BREECH PRESENTATION, UNSP Status: Acute Current Visit: No Qualifiers: Fetus number: single or unspecified fetus Qualified Code(s): O32.1XX0 - Maternal care for breech presentation, not applicable or unspecified (2) 39 weeks gestation of SNOMED Code(s): 20665351 ICD Code: Z3A.39 - 39 WEEKS GESTATION OF Status: Acute Current Visit: No (3) Anemia complicating SNOMED Code(s): 12201339 ICD Code: O99.019 - ANEMIA COMPLICATING , UNSPECIFIED TRIMESTER Status: Acute Current Visit: No Qualifiers: Trimester: third trimester Qualified Code(s): O99.013 - Anemia complicating , third trimester (4) History of herpes genitalis SNOMED Code(s): 619512970 ICD Code: Z86.19 - PERSONAL HISTORY OF OTHER INFECTIOUS AND PARASITIC DISEASES Status: Acute Current Visit: No (5) Anemia associated with acute blood loss SNOMED Code(s): 561219549 ICD Code: D62 - ACUTE POSTHEMORRHAGIC ANEMIA Status: Acute Current Visit : Yes - Patient Summary/Data Operative Procedure(s) Performed: low segment transverse Complications: None Consults: None Hospital Course: Uneventful - Patient Instructions Diet: Usual Diet as Tolerated Driving: Do Not Drive (2 weeks) Showering/Bathing: May Shower, No Tub Bathing/Swimming (6 weeks) Wound/Incision Care: Keep Operative Site/Wound Site Clean and Dry Notify Provider of: Fever, Increased Pain, Swelling and Redness, Drainage, Nausea and/or Vomiting - Discharge Plan *PRESCRIPTION DRUG MONITORING PROGRAM REVIEWED*: Yes *COPY OF PRESCRIPTION DRUG MONITORING REPORT IN PATIENT ALFREDO: Yes Prescriptions/Med Rec: Acetaminophen/oxyCODONE [Percocet 325-5 MG] 1 tab PO Q6H PRN #15 tablet PRN Reason: Pain (Moderate 4-6) Home Medications: Home Meds Albuterol [Ventolin HFA] 2 puff INH Q4HR PRN 04/20/18 [History] Ferrous Sulfate [Iron] 325 mg PO DAILY 03/09/19 [History] Aap614/FA/Omega3/Dha/Fish Oil [ Gummies] 1 each PO DAILY 03/09/19 [ History] valACYclovir [Valtrex] 1,000 mg PO DAILY 03/09/19 [History] Acetaminophen [Tylenol] 650 mg PO Q6H PRN tablet 03/11/19 [Rx] Acetaminophen/oxyCODONE [Percocet 325-5 MG] 1 tab PO Q6H PRN #15 tablet [Rx] Docusate Sodium [Colace] 100 mg PO Q12H PRN cap 03/11/19 [Rx] Ibuprofen [Motrin] 600 mg PO Q6H PRN tablet 03/11/19 [Rx] Lanolin [Lansinoh HPA] 1 applic TOP ASDIRECTED PRN tube 03/11/19 [Rx] Simethicone 80 mg PO PCBED tab.chew 03/11/19 [Rx] Referrals: Dawson Fairchild MD [Physician] - (2 weeks has appointment) - Discharge Summary/Plan Comment DC Time >30 min.: No - Patient Data Vitals - Most Recent: Last Vital Signs Temp 97.9 F 03/11/19 04:09 Pulse 99 03/11/19 04:09 Resp 16 03/11/19 04:09 BP 127/72 03/11/19 04:09 Pulse Ox 97 03/11/19 04:09 Weight - Most Recent: 240 lb 1.6 oz I&O - Last 24 hours: Intake & Output 03/10/19 03/11/19 03/11/19 22:59 06:59 14:59 Intake Total 300 Balance 300 Med Orders - Current: Current Medications Acetaminophen (Tylenol) 650 mg PO Q4H PRN PRN Reason: mild pain or fever Diphenhydramine HCl (Benadryl) 25 mg IVPUSH Q6H PRN PRN Reason: Itching or Nausea Docusate Sodium (Colace) 100 mg PO Q12H PRN PRN Reason: Constipation Last Admin: 03/09/19 22:05 Dose: 100 mg Emollient Ointment (Lansinoh Hpa) 0 gm TOP ASDIRECTED PRN PRN Reason: Sore Nipples Ephedrine Sulfate (Ephedrine Sulfate) 5 mg IVPUSH SEECOMMENT PRN PRN Reason: Other Ibuprofen (Motrin) 600 mg PO Q6H PRN PRN Reason: mild pain or fever Last Admin: 03/10/19 18:19 Dose: 600 mg Naloxone HCl (Narcan) 0.1 mg IVPUSH SEECOMMENT PRN PRN Reason: Respiratory Depression Ondansetron HCl (Zofran) 4 mg IV Q8H PRN PRN Reason: Nausea/Vomiting Oxycodone/Acetaminophen (Percocet 325-5 Mg) 2 tab PO Q4H PRN PRN Reason: Pain (moderate 4-6) Last Admin: 03/11/19 05:42 Dose: 2 tab Simethicone (Simethicone) 80 mg PO PCBED [facility] Last Admin: 03/10/19 21:01 Dose: 80 mg Sodium Chloride (Saline Flush) 10 ml FLUSH ASDIRECTED PRN PRN Reason: Keep Vein Open Valacyclovir HCl (Valtrex) 500 mg PO BID [facility] Last Admin: 03/10/19 22:45 Dose: Not Given Discontinued Medications Bupivacaine HCl (Marcaine 0.5%) Confirm Administered Dose 30 ml .ROUTE .STK-MED ONE Stop: 03/09/19 06:41 Last Admin: 03/09/19 07:51 Dose: 20 ml Cefazolin Sodium (Ancef) Confirm Administered Dose 2 gm .ROUTE .STK-MED ONE Stop: 03/09/19 07:12 Citric Acid/Sodium Citrate (Bicitra Solution) 30 ml PO ONETIME ONE Stop: 03/09/19 02:53 Last Admin: 03/09/19 06:56 Dose: 30 ml Citric Acid/Sodium Citrate (Bicitra Solution) Confirm Administered Dose 30 ml .ROUTE .STK-MED ONE Stop: 03/09/19 06:42 Last Admin: 03/09/19 06:56 Dose: Not Given Diphenhydramine HCl (Benadryl) 25 mg IVPUSH Q6H PRN PRN Reason: Itching Ephedrine Sulfate (Ephedrine In Ns) Confirm Administered Dose 25 mg .ROUTE .STK- MED ONE Stop: 03/09/19 07:47 Ephedrine Sulfate (Ephedrine In Ns) Confirm Administered Dose 25 mg .ROUTE .STK- MED ONE Stop: 03/09/19 08:06 Lactated Ringer's (Ringers, Lactated) 1,000 mls @ 125 mls/hr IV ASDIRECTED ALESHIA Last Admin: 03/09/19 06:57 Dose: 999 mls/hr Lactated Ringer's (Ringers, Lactated) Confirm Administered Dose 1,000 mls @ as directed .ROUTE .STK-MED ONE Stop: 03/09/19 08:19 Dextrose/Lactated Ringer's (Dextrose 5%-Lactated Ringers) 1,000 mls @ 125 mls/ hr IV ASDIRECTED ALESHIA Stop: 03/09/19 16:59 Ketorolac Tromethamine (Toradol) Confirm Administered Dose 30 mg .ROUTE .STK- MED ONE Stop: 03/09/19 08:05 Metoclopramide HCl (Reglan) 10 mg IVPUSH ONETIME ONE Stop: 03/09/19 02:53 Last Admin: 03/09/19 06:55 Dose: 10 mg Metoclopramide HCl (Reglan) Confirm Administered Dose 10 mg .ROUTE .STK-MED ONE Stop: 03/09/19 06:42 Last Admin: 03/09/19 06:56 Dose: Not Given Morphine Sulfate (Duramorph Pf) Confirm Administered Dose 10 mg .ROUTE .STK-MED ONE Stop: 03/09/19 07:12 Nalbuphine HCl (Nubain) 10 mg IVPUSH Q2H PRN PRN Reason: pain Oxytocin (Pitocin) Confirm Administered Dose 20 unit .ROUTE .STK-MED ONE Stop: 03/09/19 07:40 Sodium Chloride (Saline Flush) 10 ml FLUSH ASDIRECTED PRN PRN Reason: Keep Vein Open
== END 2019-03-11 09:30 | disposition home or self-care (01) | DRG 540 ==
LOC: JD.OB 05:07
PROVIDERS: ADMIT Obstetrics & Gynecology; ATTEND Obstetrics & Gynecology
PROC: 10D00Z1 Extraction of Products of Conception, Low, Open Approach (ICD-10-PCS; principal; 2019-03-09)
DX: O32.1XX0 Maternal care for breech presentation, not applicable or unspecified (principal); Z3A.39 39 weeks gestation of pregnancy; Z37.0 Single live birth; O99.02 Anemia complicating childbirth; Z86.19 Personal history of other infectious and parasitic diseases; D62 Acute posthemorrhagic anemia
CPT/HCPCS: 01961; 36415; 59025; 85025; 85027; 86592; 86850; 86900; 86901; 94762; A9270-GY; J0690; J1885; J2270; J2590; J2765; J3490; J7050; J7120

== ENCOUNTER 2020-05-08 05:06 | Inpatient (IN) | payer MEDICAID ==
--- NOTE | 2020-05-02 10:01 | PCM.LDHP ---
<Kalyn Will - Last Filed: 05/02/20 09:43> L&D History of Present Illness - General Date of Service: 05/08/20 Admit Problem/Dx: Admission Diagnosis/Problem Admission Diagnosis/Problem 05/02/20 10:10 Source of Information: Patient History Limitations: Reports: No Limitations - History of Present Illness Introduction:: Lisa Bruno is a 30-year-old female who will present on May 08, 2020 for a repeat section. She will be 39 weeks and 0 days gestational age on the day of her section. Her GREGORY is 05/15/2020. Present Illness Comments:: Lisa Bruno is a 30-year-old female who will present on May 08, 2020 for a repeat section. She will be 39 weeks and 0 days gestational age on the day of her section. Her GREGORY is 05/15/2020. The procedures, risks, and benefits were discussed with the patient and she agr eed to proceed. OBGYN History: Age 30 . GREGORY 05/15/2020, LMP 08/01/2020, supported by ultrasound performed on 12/13/2019. Menarche at age 11, cycles are regular and last 28-30 days. She was not on control at the time of conception. History of genital herpes, for which she has been on Valacyclovir prophylaxis since 36 weeks. Past OB History: 1. Female infant born on 03/09/2021 at 39 weeks and 4 days gestational age by section. weight of 7 lbs 6 oz. section performed at with spinal anesthesia. Course: First visit on 12/13/2019 at 18 weeks gestational age. Patient was seen on a fairly regular basis throughout . Her weight at the start of was 217 pounds; weight at the end of was 237 pounds, for a total weight gain during of 20 pounds. Vital signs remained stable throughout and fundal height growths were appropriate. TDAP given on 03/01/2020. Due to a history of genital herpes, she has been taking Valacyclovir prophylaxis since 36 weeks gestational age. First Trimester Labs (12/13/2019): Blood Type: O positive Antibody Screen: Negative Hemoglobin: 11.4 g/dl Hematocrit: 33.9% Platelets: 282 10*3/uL Rubella: Equivocal RPR: Nonreactive Hepatitis B Surface Antigen: Negative HIV: Negative Chlamydia: Negative Gonorrhea: Negative Third Trimester Labs (04/02/2020): Hemoglobin: 11.4 g/dl Hematocrit: 36.0% Platelets: 271 10*3/uL RPR: Nonreative Group B Strep: Negative - Related Data Allergies/Adverse Reactions: Allergies Allergy/AdvReac Type Severity Reaction Status Date / Time No Known Allergies Allergy Verified 03/09/19 06:12 Home Medications: Home Meds Albuterol [Ventolin HFA] 2 puff INH Q4HR PRN 04/20/18 [History] Ferrous Sulfate [Iron] 325 mg PO DAILY 03/09/19 [History] Pnv No.103/Folic/Om3s/Fish Oil [ Gummies] 1 each PO DAILY 03/09/19 [History] valACYclovir [Valtrex] 1,000 mg PO DAILY 03/09/19 [History] Acetaminophen [Tylenol] 650 mg PO Q6H PRN tablet 03/11/19 [Rx] Acetaminophen/oxyCODONE [Percocet 325-5 MG] 1 tab PO Q6H PRN #15 tablet 03/11/19 [Rx] Docusate Sodium [Colace] 100 mg PO Q12H PRN cap 03/11/19 [Rx] Ibuprofen [Motrin] 600 mg PO Q6H PRN tablet 03/11/19 [Rx] Lanolin [Lansinoh HPA] 1 applic TOP ASDIRECTED PRN tube 03/11/19 [Rx] Simethicone 80 mg PO PCBED tab.chew 03/11/19 [Rx] Past Medical History - Past Health History Medical/Surgical History: Denies Medical/Surgical History Respiratory History: Reports: Asthma Gastrointestinal History: Reports: GERD, Other (See Below) Other Gastrointestinal History: gallbladder flare up 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: Psychiatric History: Reports: Anxiety - Infectious Disease History Infectious Disease History: Reports: Herpes - Past Surgical History HEENT Surgical History: Reports: Naso-Sinus Surgery Other HEENT Surgeries/Procedures: sinus surgery; polyps removal Musculoskeletal Surgical History: Reports: Other (See Below) (Foot surgery, 2008) Social & Family History - Family History Family Medical History: Noncontributory - Tobacco Use Smoking Status *Q: Never Smoker - Caffeine Use Caffeine Use: Reports: None - Alcohol Use Alcohol Use History: No - Recreational Drug Use Recreational Drug Use: No H&P Review of Systems - Review of Systems: Review Of Systems: See Below General: Reports: No Symptoms HEENT: Reports: No Symptoms Pulmonary: Reports: No Symptoms Cardiovascular: Reports: No Symptoms Gastrointestinal: Reports: No Symptoms Genitourinary: Reports: No Symptoms Musculoskeletal: Reports: No Symptoms Skin: Reports: No Symptoms Psychiatric: Reports: No Symptoms Neurological: Reports: No Symptoms Hematologic/Lymphatic: Reports: No Symptoms Immunologic: Reports: No Symptoms L&D Exam - Exam Exam: See Below - Exam General: Alert, Oriented, Cooperative HEENT: Conjunctiva Clear, EOMI, Hearing Intact, Mucosa Moist & [place], Normal Nasal Septum, Posterior Pharynx Clear, Pupils Equal, Pupils Reactive Neck: Supple, Trachea Midline Lungs: Clear to Auscultation, Normal Respiratory Effort Cardiovascular: Regular Rate, Regular Rhythm, Normal S1, Normal S2 GI/Abdominal Exam: Normal Bowel Sounds Rectal Exam: Deferred Genitourinary: Normal external exam Back Exam: Normal Inspection, Full Range of Motion Extremities: Normal Inspection, Normal Range of Motion, Non-Tender, No Pedal Edema, Normal Capillary Refill Skin: Warm, Dry, Intact Neurological: Cranial Nerves Intact Psychiatric: Alert, Normal Affect, Normal Mood Assessment/Plan Comment:: Lisa Bruno is a 30-year-old female who will present on May 08, 2020 for a repeat section. She will be 39 weeks and 0 days gestational age on the day of her section. Her GREGORY is 05/15/2020. She will have a COVID-19 test performed on May 04. NPO after midnight starting at 12:01 AM May 08, 2020. Present to labor and delivery at 5:00 am on May 08, 2020. Spinal anesthesia. She will receive 2 g IV Ancef intra-operatively. Lactated Ringers. Routine section care. HOWIE Harrington 05/02/2020 [id number] HRS <Dawson Fairchild - Last Filed: 05/03/20 08:55> L&D History of Present Illness - General Admit Problem/Dx: Admission Diagnosis/Problem Admission Diagnosis/Problem H&P Review of Systems - Review of Systems: Review Of Systems: See Below L&D Exam - Exam Exam: See Below - Problem List (1) 39 weeks gestation of SNOMED Code(s): 31915851 ICD Code: Z3A.39 - 39 WEEKS GESTATION OF Status: Acute Problem List Initiated/Reviewed/Updated: No Assessment/Plan Comment:: Patient seen and examined by me and discussed with student.
[~2020-05-08 05:06] MED LIST changes: -Citric Acid/Sodium Citrate Solution 30 ML Cup PO ONE; -Metoclopramide 10 MG/2 ML SDV IVPUSH ONE; -Nalbuphine 20 MG/ML 1 ML Syringe IVPUSH PRN
[2020-05-08] MEDS ORDERED: Citric Acid/Sodium Citrate Solution 30 ML Cup PO ONE (06:30)
[2020-05-08] MEDS ORDERED: Metoclopramide 10 MG/2 ML SDV IVPUSH ONE (06:30)
[2020-05-08] MEDS: Lactated Ringers 1,000 ML IV SCH ×3 (06:37→08:37)
[2020-05-08] MEDS ORDERED: Oxytocin/Lactated Ringers 20 UNIT/1,000 ML BAG IV SCH (07:00)
[2020-05-08] MEDS ORDERED: Bupivacaine 0.5% 30 ML SDV ONE (07:00)
[2020-05-08] MEDS ORDERED: ceFAZolin 2 GM in Premix Bag 1 BAG IV ONE (07:00)
--- NOTE | 2020-05-08 07:03 | PCM.PREANE ---
Preanesthetic Assessment - Anesthesia/Transfusion/Family Hx Anesthesia History: Prior Anesthesia Without Reaction Family History of Anesthesia Reaction: No Transfusion History: No Prior Transfusion(s) Intubation History: Unknown - Review of Systems General: No Symptoms Pulmonary: No Symptoms (Asthma) Cardiovascular: No Symptoms Gastrointestinal: No Symptoms (GERD) Neurological: No Symptoms Other: Reports: Thyroid Problems (Hypothyroid), Anxiety - Physical Assessment NPO Status Date: 05/08/20 NPO Status Time: 00:00 Vital Signs: Last Vital Signs Temp 36.6 C 05/08/20 05:26 Pulse 100 05/08/20 05:26 Resp 14 05/08/20 05:26 BP 125/85 05/08/20 05:26 Pulse Ox 98 05/08/20 05:26 Height: 1.65 m Weight: 107.547 kg ASA Class: 2 Mental Status: Alert & Oriented x3 Airway Class: Mallampati = 2 Dentition: Reports: Normal Dentition, Caries Thyro-Mental Finger Breadths: 3 Mouth Opening Finger Breadths: 3 ROM/Head Extension: Full Lungs: Clear to Auscultation, Normal Respiratory Effort Cardiovascular: Regular Rate, Regular Rhythm, No Murmurs - Lab Values: Laboratory Last Values WBC 8.55 K/mm3 (3.98-10.04) 05/08/20 06:10 RBC 3.69 M/mm3 (3.98-5.22) L 05/08/20 06:10 Hgb 11.0 gm/dl (11.2-15.7) L 05/08/20 06:10 Hct 34.5 % (34.1-44.9) 05/08/20 06:10 MCV 93.5 fl (79.4-94.8) 05/08/20 06:10 MCH 29.8 pg (25.6-32.2) 05/08/20 06:10 MCHC 31.9 g/dl (32.2-35.5) L 05/08/20 06:10 RDW Std Deviation 44.0 fL (36.4-46.3) 05/08/20 06:10 Plt Count 251 K/mm3 (182-369) 05/08/20 06:10 MPV 9.7 fl (9.4-12.3) 05/08/20 06:10 Neut % (Auto) 77.0 % (34.0-71.1) H 05/08/20 06:10 Lymph % (Auto) 14.5 % (19.3-51.7) L 05/08/20 06:10 Griggs % (Auto) 6.8 % (4.7-12.5) 05/08/20 06:10 Eos % (Auto) 1.5 (0.7-5.8) 05/08/20 06:10 Baso % (Auto) 0.1 % (0.1-1.2) 05/08/20 06:10 Neut # (Auto) 6.58 K/mm3 (1.56-6.13) H 05/08/20 06:10 Lymph # (Auto) 1.24 K/mm3 (1.18-3.74) 05/08/20 06:10 Griggs # (Auto) 0.58 K/mm3 (0.24-0.36) H 05/08/20 06:10 Eos # (Auto) 0.13 K/mm3 (0.04-0.36) 05/08/20 06:10 Baso # (Auto) 0.01 K/mm3 (0.01-0.08) 05/08/20 06:10 Above labs reviewed and noted and within acceptable ranges to proceed with c section. - Allergies Allergies/Adverse Reactions: Allergies Allergy/AdvReac Type Severity Reaction Status Date / Time No Known Allergies Allergy Verified 05/08/20 06:31 - Anesthesia Plan Pre-Op Medication Ordered: Other (bicitra and reglan) - Acknowledgements Anesthesia Type Planned: Spinal Pt an Appropriate Candidate for the Planned Anesthesia: Yes Alternatives and Risks of Anesthesia Discussed w Pt/Guardian: Yes Pt/Guardian Understands and Agrees with Anesthesia Plan: Yes PreAnesthesia Questionnaire - Past Health History Medical/Surgical History: Denies Medical/Surgical History Respiratory History: Reports: Asthma Other Respiratory History: allergy induced Gastrointestinal History: Reports: GERD, Other (See Below) Other Gastrointestinal History: gallbladder flare up 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: Psychiatric History: Reports: Anxiety Endocrine/Metabolic History: Reports: Hypothyroidism Hematologic History: Reports: Anemia - Infectious Disease History Infectious Disease History: Reports: Herpes Other Infectious Disease History: On acyclivir prophylactic since 36 wks - Past Surgical History HEENT Surgical History: Reports: Naso-Sinus Surgery, Other (See Below) Female Surgical History: Reports: Section Musculoskeletal Surgical History: Reports: Other (See Below) Other Musculoskeletal Surgeries/Procedures:: foot surgery in 2007 - SUBSTANCE USE Smoking Status *Q: Never Smoker Tobacco Use Within Last Twelve Months: No Second Hand Smoke Exposure: No Recreational Drug Use History: No - HOME MEDS Home Medications: Home Meds Albuterol [Ventolin HFA] 2 puff INH Q4HR PRN 04/20/18 [History] Ferrous Sulfate [Iron] 325 mg PO DAILY 03/09/19 [History] Pnv No.103/Folic/Om3s/Fish Oil [ Gummies] 1 each PO DAILY 03/09/19 [History] Levothyroxine [Synthroid] 88 mcg PO DAILY 05/08/20 [History] valACYclovir [Valtrex] 500 mg PO DAILY 05/08/20 [History] - CURRENT (IN HOUSE) MEDS Current Meds: Current Medications Cefazolin Sodium/Dextrose 2 gm (/ Premix) 50 mls @ 100 mls/hr IV ONETIME ONE Stop: 05/08/20 07:29 Oxytocin/Lactated Ringer's (Pitocin In Lr 20 Units/1,000 Ml) 20 unit in 1,000 mls @ 500 mls/hr IV TITRATE ALESHIA; Protocol Lactated Ringer's (Ringers, Lactated) 1,000 mls @ 125 mls/hr IV ASDIRECTED ALESHIA Last Admin: 05/08/20 06:38 Dose: 125 mls/hr Documented by: Sodium Chloride (Saline Flush) 10 ml FLUSH ASDIRECTED PRN PRN Reason: Keep Vein Open Discontinued Medications Citric Acid/Sodium Citrate (Bicitra Solution) 30 ml PO ONETIME ONE Stop: 05/08/20 06:31 Last Admin: 05/08/20 06:37 Dose: 30 ml Documented by: Metoclopramide HCl (Reglan) 10 mg IVPUSH ONETIME ONE Stop: 05/08/20 06:31 Last Admin: 05/08/20 06:37 Dose: 10 mg Documented by:
[2020-05-08] MEDS ORDERED: Ketorolac 30 MG/ML SDV ONE (07:21)
[2020-05-08] MEDS ORDERED: Morphine PF 1 MG/ML Amp ONE (07:21)
[2020-05-08] MEDS ORDERED: Lactated Ringers 2,000 ML ONE (07:21)
[2020-05-08] MEDS ORDERED: Oxytocin 10 Units/1 ML SDV ONE (07:21)
[2020-05-08] MEDS ORDERED: Ondansetron 4 MG/2 ML SDV ONE (07:21)
[2020-05-08] MEDS ORDERED: ceFAZolin 1 GM Vial ONE (07:21)
[2020-05-08] MEDS ORDERED: fentaNYL 100 MCG/2 ML SDV IVPUSH PRN (07:51)
[2020-05-08] MEDS ORDERED: ePHEDrine 50 MG/ML SDV IVPUSH PRN ×2 (07:51→10:22)
[2020-05-08] MEDS ORDERED: Ondansetron 4 MG/2 ML SDV IVPUSH PRN (07:51)
[2020-05-08] MEDS ORDERED: diphenhydrAMINE 50 MG/ML SDV IVPUSH PRN ×2 (07:51→10:22)
[2020-05-08] MEDS ORDERED: HYDROmorphone 0.5 MG/0.5 ML Syringe IVPUSH PRN (07:52)
[2020-05-08] MEDS ORDERED: Phenylephrine 1 MG in Sodium Chloride 0.9% 10 ML IV PRN (08:00)
--- NOTE | 2020-05-08 08:35 | PCM.POSTAN ---
POST ANESTHESIA ASSESSMENT - MENTAL STATUS Mental Status: Alert - VITAL SIGNS Vital Signs: Last Vital Signs Temp 97 05/08/20825 Pulse 64 05/08/20825 Resp 8 05/08/20825 BP 92/53 05/08/20825 Pulse Ox 98 05/08/20825 - RESPIRATORY Respiratory Status: Respiratory Rate WNL, Airway Patent, O2 Saturation Stable - CARDIOVASCULAR CV Status: Pulse Rate WNL, Blood Pressure Stable - GASTROINTESTINAL GI Status: No Symptoms - POST OP HYDRATION Hydration Status: Adequate & Stable
--- NOTE | 2020-05-08 08:40 | PCM.OPNOTE ---
- General Post-Op/Procedure Note Date of Surgery/Procedure: 05/08/20 Operative Procedure(s): Repeat low segment transverse Pre Op Diagnosis: 39 weeks, prior section Post-Op Diagnosis: Same nuchal cord x1 Primary Surgeon: Dawson Fairchild Secondary Surgeon: Mick Arthur Anesthesia Provider: Lauren Mancera Sheriffs Detective: Kalyn Will (PAS) Reason Sheriffs Detective Was Necessary: Action, assist in surgery, decrease comorbidity and mortality Role of Sheriffs Detective: Action, assist in surgery, decrease comorbidity and mortality Fluid Replacement, Intraop: 1,050 Output, Urine Amount: 15 EBL in mLs: 1,000 Drain/Tube Comments:: Bowling Complications: None Condition: Good Free Text/Narrative:: Patient was transported to the operating room #1 placed under spinal anesthesia in the supine position with a wedge under the right hip and right flank. SCDs in place and functioning prior to surgery. Ancef 2 g given intravenously prior to surgery at 0735 hrs. catheter placed to gravity drainage. Prepared and draped in a sterile fashion. Timeout performed confirming name date of and procedures repeat section. Patient draped in a sterile fashion. Adequate level of anesthesia was confirmed and patient's brought to the operating room. 20 mL of 0.5% Marcaine injected in area of the planned incision. Pfannenstiel incision was made and carried sharp section to and through the anterior fascia. Peritoneal cavity was entered without difficulty. Nasal cavity was entered without difficulty clear fluid upon entry into the uterine cavity. The infant was delivered male liveborn 0800 hrs. 05/08/2020 left occiput anterior nuchal cord reduced without difficulty Apgars 9/9 was handed to the scientific manager Cord blood was collected from three- vessel cord. Placenta removed manually. The weighed 3520 g 7 pounds 12 ounces. Endometrial cavity was inspected and found free of placenta and membranes. Sponge, needle, pack count correct x1 and the uterus closed in 2 layers first layer running locking suture of 0 Monocryl. Second layer horizontal imbricating suture modified Lembert type. Additional [id number] suture x2 for hemostasis. Both tubes and ovaries appeared normal clots were cleaned from the cul-de-sac uterus placed into abdominal cavity. Uterine incision reinspected no bleeding. Sponge needle pack and instrument count correct x2 the abdominal cavity was closed with #1 PDS for the anterior fascia. Irrigation carried out and subcuticular suture of 3-0 Monocryl Angelo needle. Dermabond Preneo lied. Clots were cleaned from the vagina at the end of the procedure. Patient transported to postanesthesia care unit in satisfactory condition no blood transfusions were required.
[2020-05-08] MEDS ORDERED: Ondansetron 4 MG/2 ML SDV IV PRN (10:22)
[2020-05-08] MEDS ORDERED: Naloxone 0.4 MG/ML SDV IVPUSH PRN (10:22)
[2020-05-08] MEDS ORDERED: Sodium Chloride 0.9% 10 ML Syringe FLUSH PRN (10:22)
[2020-05-08] MEDS ORDERED: Docusate Sodium 100 MG Cap PO PRN (10:22)
[2020-05-08] MEDS ORDERED: Acetaminophen 325 MG Tab PO PRN (10:22)
[2020-05-08] MEDS ORDERED: Dextrose 5%-Lactated Ringers 1,000 ML IV SCH (10:22)
[2020-05-08] MEDS: Simethicone 80 MG Tab.Chew PO SCH ×4 (10:52→20:12)
[2020-05-08] MEDS: Levothyroxine 88 MCG Tab PO SCH (10:53)
[2020-05-08] MEDS: valACYclovir 500 MG Tab PO SCH (10:53)
[2020-05-08] MEDS ORDERED: Lactated Ringers 1,000 ML ONE (11:01)
[2020-05-08] MEDS ORDERED: Lactated Ringers 1,000 ML IV ONE (13:16)
[2020-05-08] MEDS: Ketorolac 30 MG/ML SDV IVPUSH SCH ×2 (14:37→20:11)
[2020-05-09] MEDS: Ketorolac 30 MG/ML SDV IVPUSH SCH (02:36)
--- NOTE | 2020-05-09 07:25 | PCM48HPAN ---
Post Anesthesia Note - EVALUATION WITHIN 48HRS OF ANESTHETIC Vital Signs in Normal Range: Yes Patient Participated in Evaluation: Yes Respiratory Function Stable: Yes Airway Patent: Yes Cardiovascular Function Stable: Yes Hydration Status Stable: Yes Pain Control Satisfactory: Yes Nausea and Vomiting Control Satisfactory: Yes Mental Status Recovered: Yes Vital Signs: Last Vital Signs Temp 36.6 C 05/09/20 04:15 Pulse 53 L 05/09/20 04:15 Resp 16 05/09/20 06:00 BP 100/55 L 05/09/20 04:15 Pulse Ox 98 05/09/20 06:00
[2020-05-09] MEDS: Acetaminophen/oxyCODONE 325-5 MG Tab PO PRN ×3 (08:31→21:39)
[2020-05-09] MEDS: Levothyroxine 88 MCG Tab PO SCH (08:31)
[2020-05-09] MEDS: Simethicone 80 MG Tab.Chew PO SCH ×3 (08:32→17:53)
--- NOTE | 2020-05-09 08:40 | PCM.SN.2 ---
- Free Text/Narrative Note: day 1/postop day 1 Patient is afebrile. Chest clear no abnormal breath sounds. Cardiovascular exam normal. Abdomen is soft and uterus is involuting normally at the umbilicus. Incision appears normal. No heavy vaginal bleeding. No leg cramping. Patient doing well probably home tomorrow
[2020-05-09] MEDS: valACYclovir 500 MG Tab PO SCH (10:38)
[2020-05-09] MEDS: Ibuprofen 600 MG Tab PO PRN (12:56)
[2020-05-10] MEDS: Ibuprofen 600 MG Tab PO PRN (00:32)
[2020-05-10] MEDS: Simethicone 80 MG Tab.Chew PO SCH ×2 (01:50→11:02)
[2020-05-10] MEDS: Acetaminophen/oxyCODONE 325-5 MG Tab PO PRN ×2 (02:16→07:51)
--- NOTE | 2020-05-10 08:14 | PCM.DCSUM1 ---
Discharge Summary - Hospital Course Free Text/Narrative:: [facility] Post-Op/Procedure Note Patient Name: KARAN ALMONTE Date of : 86 Patient Status: Inpatient Attending Provider: Dawson Fairchild Date: 05/08/20 08:34 Initialization Date: 05/08/20 08:34 - General Post-Op/Procedure Note Date of Surgery/Procedure: 05/08/20 Operative Procedure(s): Repeat low segment transverse Pre Op Diagnosis: 39 weeks, prior section Post-Op Diagnosis: Same nuchal cord x1 Primary Surgeon: Dawson Fairchild Secondary Surgeon: Mick Arthur Anesthesia Provider: Lauren Mancera Deliverer Food: Kalyn Will ([facility]) Reason Deliverer Food Was Necessary: Action, assist in surgery, decrease comorbidity and mortality Role of Deliverer Food: Action, assist in surgery, decrease comorbidity and mortality Fluid Replacement, Intraop: 1,050 Output, Urine Amount: 15 EBL in mLs: 1,000 Drain/Tube Comments:: Bowling Complications: None Condition: Good Free Text/Narrative:: Patient was transported to the operating room #1 placed under spinal anesthesia in the supine position with a wedge under the right hip and right flank. SCDs in place and functioning prior to surgery. Ancef 2 g given intravenously prior to surgery at 0735 hrs. catheter placed to gravity drainage. Prepared and draped in a sterile fashion. Timeout performed confirming name date of and procedures repeat section. Patient draped in a sterile fashion. Adequate level of anesthesia was confirmed and patient's brought to the operating room. 20 mL of 0.5% Marcaine injected in area of the planned incision. Pfannenstiel incision was made and carried sharp section to and through the anterior fascia. Peritoneal cavity was entered without difficulty. Nasal cavity was entered without difficulty clear fluid upon entry into the uterine cavity. The infant was delivered male liveborn 0800 hrs. 05/08/2020 left occiput anterior nuchal cord reduced without difficulty Apgars 9/9 was handed to the museum director Cord blood was collected from three- vessel cord. Placenta removed manually. The weighed 3520 g 7 pounds 12 ounces. Endometrial cavity was inspected and found free of placenta and membranes. Sponge, needle, pack count correct x1 and the uterus closed in 2 layers first layer running locking suture of 0 Monocryl. Second layer horizontal imbricating suture modified Lembert type. Additional [id number] suture x2 for hemostasis. Both tubes and ovaries appeared normal clots were cleaned from the cul-de-sac uterus placed into abdominal cavity. Uterine incision reinspected no bleeding. Sponge needle pack and instrument count correct x2 the abdominal cavity was closed with #1 PDS for the anterior fascia. Irrigation carried out and subcuticular suture of 3-0 Monocryl Angelo needle. Dermabond Preneo lied. Clots were cleaned from the vagina at the end of the procedure. Patient transported to postanesthesia care unit in satisfactory condition no blood transfusions were required. HPI Initial Comments: [facility] Post-Op/Procedure Note Patient Name: KARAN ALMONTE Date of : 86 Patient Status: Inpatient Attending Provider: Dawson Fairchild Date: 05/08/20 08:34 Initialization Date: 05/08/20 08:34 - General Post-Op/Procedure Note Date of Surgery/Procedure: 05/08/20 Operative Procedure(s): Repeat low segment transverse Pre Op Diagnosis: 39 weeks, prior section Post-Op Diagnosis: Same nuchal cord x1 Primary Surgeon: Dawson Fairchild Secondary Surgeon: Mick Arthur Anesthesia Provider: Lauren Mancera Deliverer Food: Kalyn Will ([facility] [place]) Reason Deliverer Food Was Necessary: Action, assist in surgery, decrease comorbidity and mortality Role of Deliverer Food: Action, assist in surgery, decrease comorbidity and mortality Fluid Replacement, Intraop: 1,050 Output, Urine Amount: 15 EBL in mLs: 1,000 Drain/Tube Comments:: Bowling Complications: None Condition: Good Free Text/Narrative:: Patient was transported to the operating room #1 placed under spinal anesthesia in the supine position with a wedge under the right hip and right flank. SCDs in place and functioning prior to surgery. Ancef 2 g given intravenously prior to surgery at 0735 hrs. catheter placed to gravity drainage. Prepared and draped in a sterile fashion. Timeout performed confirming name date of and procedures repeat section. Patient draped in a sterile fashion. Adequate level of anesthesia was confirmed and patient's brought to the operating room. 20 mL of 0.5% Marcaine injected in area of the planned incision. Pfannenstiel incision was made and carried sharp section to and through the anterior fascia. Peritoneal cavity was entered without difficulty. Nasal cavity was entered without difficulty clear fluid upon entry into the uterine cavity. The was delivered male liveborn 0800 hrs. 05/08/2020 left occiput anterior nuchal cord reduced without difficulty Apgars 9/9 was handed to the museum director Cord blood was collected from three- vessel cord. Placenta removed manually. The weighed 3520 g 7 pounds 12 ounces. Endometrial cavity was inspected and found free of placenta and membranes. Sponge, needle, pack count correct x1 and the uterus closed in 2 layers first layer running locking suture of 0 Monocryl. Second layer h orizontal imbricating suture modified Lembert type. Additional imjzxq-kp-[id number] suture x2 for hemostasis. Both tubes and ovaries appeared normal clots were cleaned from the cul-de-sac uterus placed into abdominal cavity. Uterine incision reinspected no bleeding. Sponge needle pack and instrument count correct x2 the abdominal cavity was closed with #1 PDS for the anterior fascia. Irrigation carried out and subcuticular suture of 3-0 Monocryl Angelo needle. Dermabond Preneo lied. Clots were cleaned from the vagina at the end of the procedure. Patient transported to postanesthesia care unit in satisfactory condition no blood transfusions were required. Brief History: [facility] . Post[facility]Op/Procedure Note. [facility]: [id number]. Date of : 86Patient Status: Inpatient. Attending Provider: Dawson Fairchildccount Number: [id number]. Date: 05/08/20 08:34Initialization Date: 05/08/20 08:34. - General Post-Op/Procedure Note. Date of Surgery/Procedure: 05/08/20. Operative Procedure(s): Repeat low segment transverse . Pre Op Diagnosis: 39 weeks, prior section. Post-Op Diagnosis: Same nuchal cord x1. Primary Surgeon: Dawson Fairchild. Secondary Surgeon: Mick Arthur. Anesthesia Provider: Lauren Mancera. Deliverer Food: Kalyn Will ([facility] [place]). Reason Deliverer Food Was Necessary: Action, assist in surgery, decrease comorbidity and mortality. Role of Deliverer Food: Action, assist in surgery, decrease comorbidity and mortality. Fluid Replacement, Intraop: 1,050. Output, Urine Amount: 15. EBL in mLs: 1,000. Drain/Tube Comments:: Bowling. Complications: None. Condition: Good. Free Text/Narrative:: Patient was transported to the operating room #1 placed under spinal anesthesia in the supine position with a wedge under the right hip and right flank. SCDs in place and functioning prior to surgery. Ancef 2 g given intravenously prior to surgery at 0735 hrs. catheter placed to gravity drainage. Prepared and draped in a sterile fashion. Timeout performed confirming name date of and procedures repeat section. Patient draped in a sterile fashion. Adequate level of anesthesia was confirmed and patient's brought to the operating room. 20 mL of 0.5% Marcaine injected in area of the planned incision. Pfannenstiel incision was made and carried sharp section to and through the anterior fascia. Peritoneal cavity was entered without difficulty. Nasal cavity was entered without difficulty clear fluid upon entry into the uterine cavity. The infant was delivered male liveborn 0800 hrs. 05/08/2020 left occiput anterior nuchal cord reduced without difficulty Apgars 9/9 was handed to the museum director Cord blood was collected from three- vessel cord. Placenta removed manually. The weighed 3520 g 7 pounds 12 ounces. Endometrial cavity was inspected and found free of placenta and membranes. Sponge, needle, pack count correct x1 and the uterus closed in 2 layers first layer running locking suture of 0 Monocryl. Second layer horizontal imbricating suture modified Lembert type. Additional [id number]-us-[id number] suture x2 for hemostasis. Both tubes and ovaries appeared normal clots were cleaned from the cul-de-sac uterus placed into abdominal cavity. Uterine incision reinspected no bleeding. Sponge needle pack and instrument count correct x2 the abdominal cavity was closed with #1 PDS for the anterior fascia. Irrigation carried out and subcuticular suture of 3-0 Monocryl Angelo needle. Dermabond Preneo lienasima. Clots were cleaned from the vagina at the end of the procedure. Patient transported to postanesthesia care unit in satisfactory condition no blood transfusions were required. Diagnosis: Stroke: No - Discharge Data Discharge Date: 05/10/20 Discharge Disposition: Home, Self-Care 01 Condition: Good - Referral to Home Health Primary Care Physician: Dawson Fairchild MD - Discharge Diagnosis/Problem(s) (1) 39 weeks gestation of SNOMED Code(s): 16193230 ICD Code: Z3A.39 - 39 WEEKS GESTATION OF Status: Acute Current Visit: No (2) delivery, delivered, current hospitalization SNOMED Code(s): 686701534 ICD Code: O82 - ENCOUNTER FOR DELIVERY WITHOUT INDICATION Status: Acute Current Visit: Yes (3) Nuchal cord without compression, delivered, current hospitalization SNOMED Code(s): 10298412, 465325770 ICD Code: O69.81X0 - LABOR AND DEL COMP BY CORD AROUND NECK, W/O COMPRSN, UNSP Status: Acute Current Visit: Yes - Patient Summary/Data Operative Procedure(s) Performed: Repeat low segment transverse Complications: None Consults: None Hospital Course: Uneventful - Patient Instructions Diet: Usual Diet as Tolerated Driving: Do Not Drive (2 weeks) Showering/Bathing: May Shower, No Tub Bathing/Swimming (x6 weeks) Wound/Incision Care: Keep Operative Site/Wound Site Clean and Dry Notify Provider of: Fever, Increased Pain, Swelling and Redness, Drainage, Nausea and/or Vomiting - Discharge Plan *PRESCRIPTION DRUG MONITORING PROGRAM REVIEWED*: Yes *COPY OF PRESCRIPTION DRUG MONITORING REPORT IN PATIENT ALFREDO: Yes Prescriptions/Med Rec: Acetaminophen/oxyCODONE [Percocet 325-5 MG] 1 tab PO Q8H PRN #20 tablet PRN Reason: Pain (Moderate 4-6) Home Medications: Home Meds Albuterol [Ventolin HFA] 2 puff INH Q4HR PRN 04/20/18 [History] Ferrous Sulfate [Iron] 325 mg PO DAILY 03/09/19 [History] Pnv No.103/Folic/Om3s/Fish Oil [ Gummies] 1 each PO DAILY 03/09/19 [History] Levothyroxine [Synthroid] 88 mcg PO DAILY 08/04/20 [History] valACYclovir [Valtrex] 500 mg PO DAILY 05/08/20 [History] Acetaminophen [Tylenol] 650 mg PO Q4H PRN tablet 05/10/20 [Rx] Acetaminophen/oxyCODONE [Percocet 325-5 MG] 1 tab PO Q8H PRN #20 tablet 05/10/20 [Rx] Docusate Sodium [Colace] 100 mg PO Q12H PRN cap 05/10/20 [Rx] Ibuprofen [Motrin] 600 mg PO Q6H PRN tablet 05/10/20 [Rx] Simethicone 80 mg PO QID tab.chew 05/10/20 [Rx] Referrals: Dawson Fairchild MD [Primary Care Provider] - (05/22/2020) - Discharge Summary/Plan Comment DC Time >30 min.: No - Patient Data Vitals - Most Recent: Last Vital Signs Temp 98.1 F 05/10/20 02:10 Pulse 62 05/10/20 02:10 Resp 18 05/09/20 19:41 BP 135/98 H 05/10/20 02:10 Pulse Ox 96 05/10/20 02:10 Weight - Most Recent: 237 lb 1.6 oz I&O - Last 24 hours: Intake & Output 05/09/20 05/10/20 05/10/20 22:59 06:59 14:59 Intake Total 0 Balance 0 Med Orders - Current: Current Medications Acetaminophen (Tylenol) 650 mg PO Q4H PRN PRN Reason: mild pain or fever Diphenhydramine HCl (Benadryl) 25 mg IVPUSH Q6H PRN PRN Reason: Itching or Nausea Docusate Sodium (Colace) 100 mg PO Q12H PRN PRN Reason: Constipation Ephedrine Sulfate (Ephedrine Sulfate) 5 mg IVPUSH SEECOMMENT PRN PRN Reason: Other Ibuprofen (Motrin) 600 mg PO Q6H PRN PRN Reason: mild pain or fever Last Admin: 05/10/20 00:32 Dose: 600 mg Documented by: Levothyroxine Sodium (Synthroid) 88 mcg PO DAILY [facility] Last Admin: 05/09/20 08:31 Dose: 88 mcg Documented by: Naloxone HCl (Narcan) 0.1 mg IVPUSH SEECOMMENT PRN PRN Reason: Respiratory Depression Ondansetron HCl (Zofran) 4 mg IV Q8H PRN PRN Reason: Nausea/Vomiting Oxycodone/Acetaminophen (Percocet 325-5 Mg) 1 tab PO Q4H PRN PRN Reason: Pain (moderate 4-6) Last Admin: 05/09/20 21:39 Dose: 1 tab Documented by: Oxycodone/Acetaminophen (Percocet 325-5 Mg) 2 tab PO Q4H PRN PRN Reason: Pain (severe 7-10) Last Admin: 05/10/20 07:51 Dose: 2 tab Documented by: Simethicone (Simethicone) 80 mg PO QID [facility] Last Admin: 05/10/20 01:50 Dose: Not Given Documented by: Sodium Chloride (Saline Flush) 10 ml FLUSH ASDIRECTED PRN PRN Reason: Keep Vein Open Valacyclovir HCl (Valtrex) 500 mg PO DAILY [facility] Last Admin: 05/09/20 10:38 Dose: Not Given Documented by: Discontinued Medications Bupivacaine HCl (Marcaine 0.5%) Confirm Administered Dose 30 ml .ROUTE .STK-MED ONE Stop: 05/08/20 07:01 Last Admin: 05/08/20 07:56 Dose: 20 ml Documented by: Cefazolin Sodium (Ancef) Confirm Administered Dose 2 gm .ROUTE .STK-MED ONE Stop: 05/08/20 07:22 Citric Acid/Sodium Citrate (Bicitra Solution) 30 ml PO ONETIME ONE Stop: 05/08/20 06:31 Last Admin: 05/08/20 06:37 Dose: 30 ml Documented by: Diphenhydramine HCl (Benadryl) 25 mg IVPUSH Q6H PRN PRN Reason: pruritis Ephedrine Sulfate (Ephedrine Sulfate) 5 mg IVPUSH ASDIRECTED PRN PRN Reason: Hypotension Fentanyl (Sublimaze) 50 mcg IVPUSH Q5M PRN PRN Reason: Pain Hydromorphone HCl (Dilaudid) 0.5 mg IVPUSH ONETIME PRN PRN Reason: Pain Cefazolin Sodium/Dextrose 2 gm (/ Premix) 50 mls @ 100 mls/hr IV ONETIME ONE Stop: 05/08/20 07:29 Oxytocin/Lactated Ringer's (Pitocin In Lr 20 Units/1,000 Ml) 20 unit in 1,000 mls @ 500 mls/hr IV TITRATE [facility]; Protocol Lactated Ringer's (Ringers, Lactated) 1,000 mls @ 125 mls/hr IV ASDIRECTED [facility] Last Admin: 05/08/20 08:37 Dose: 125 mls/hr Documented by: Lactated Ringer's (Ringers, Lactated) Confirm Administered Dose 2,000 mls @ as directed .ROUTE .STK-MED ONE Stop: 05/08/20 07:22 Phenylephrine HCl 1 mg/ Sodium (Chloride) 10.1 mls @ 1 mls/sec IV TITRATE PRN; Protocol PRN Reason: SEE COMMENTS Dextrose/Lactated Ringer's (Dextrose 5%-Lactated Ringers) 1,000 mls @ 125 mls/hr IV ASDIRECTED [facility] Stop: 05/08/20 18:21 Last Admin: 05/08/20 10:53 Dose: 125 mls/hr Documented by: Lactated Ringer's (Ringers, Lactated) Confirm Administered Dose 1,000 mls @ as directed .ROUTE .STK-MED ONE Stop: 05/08/20 11:02 Last Admin: 05/08/20 14:11 Dose: Not Given Documented by: Lactated Ringer's (Ringers, Lactated) 1,000 mls @ 500 mls/hr IV .BOLUS ONE Stop: 05/08/20 15:15 Last Admin: 05/08/20 09:07 Dose: 500 mls/hr Documented by: Ketorolac Tromethamine (Toradol) Confirm Administered Dose 30 mg .ROUTE .STK-MED ONE Stop: 05/08/20 07:22 Ketorolac Tromethamine (Toradol) 30 mg IVPUSH Q6H [facility] Stop: 05/09/20 02:16 Last Admin: 05/09/20 02:36 Dose: 30 mg Documented by: Metoclopramide HCl (Reglan) 10 mg IVPUSH ONETIME ONE Stop: 05/08/20 06:31 Last Admin: 05/08/20 06:37 Dose: 10 mg Documented by: Miscellaneous Medication (Phenylephrine 1 Mg/10 Ml-Ns) Confirm Administered Dose 1 mg IV .STK-MED ONE Stop: 05/08/20 07:22 Morphine Sulfate (Duramorph Pf) Confirm Administered Dose 1 mg .ROUTE .STK-MED ONE Stop: 05/08/20 07:22 Ondansetron HCl (Zofran) Confirm Administered Dose 4 mg .ROUTE .STK-MED ONE Stop: 05/08/20 07:22 Ondansetron HCl (Zofran) 4 mg IVPUSH ONETIME PRN PRN Reason: Nausea/Vomiting Oxytocin (Pitocin) Confirm Administered Dose 20 unit .ROUTE .STK-MED ONE Stop: 05/08/20 07:22 Sodium Chloride (Saline Flush) 10 ml FLUSH ASDIRECTED PRN PRN Reason: Keep Vein Open
[2020-05-10] MEDS ORDERED: Measles, Mumps & Rubella Vaccine 0.5 ML SDV SUBCUT ONE (09:07)
[2020-05-10] MEDS: Levothyroxine 88 MCG Tab PO SCH (11:02)
[2020-05-10] MEDS: valACYclovir 500 MG Tab PO SCH (11:02)
== END 2020-05-10 11:47 | disposition home or self-care (01) | DRG 788 ==
LOC: JD.OB 05:06
PROVIDERS: ADMIT Obstetrics & Gynecology; ATTEND Obstetrics & Gynecology
PROC: 10D00Z1 Extraction of Products of Conception, Low, Open Approach (ICD-10-PCS; principal; 2020-05-08)
PROC: 3E0234Z Introduction of Serum, Toxoid and Vaccine into Muscle, Percutaneous Approach (ICD-10-PCS; 2020-05-10)
DX: O34.211 Maternal care for low transverse scar from previous cesarean delivery (principal); Z3A.39 39 weeks gestation of pregnancy; Z37.0 Single live birth; O69.81X0 Labor and delivery complicated by cord around neck, without compression, not applicable or unspecified; O99.62 Diseases of the digestive system complicating childbirth; K21.9 Gastro-esophageal reflux disease without esophagitis; O99.52 Diseases of the respiratory system complicating childbirth; J45.909 Unspecified asthma, uncomplicated; O99.344 Other mental disorders complicating childbirth; F41.9 Anxiety disorder, unspecified; Z23 Encounter for immunization
CPT/HCPCS: 01961; 36415; 59025; 85025; 86592; 86850; 86900; 86901; 90471; 90707; 94762; A9270-GY; J0690; J1885; J2274; J2370; J2405; J2590; J2765; J3490; J7120; J7121